=== PATIENT | female | born 1960 | race Caucasian/White ===

== ENCOUNTER 2019-11-09 12:59 | Outpatient (CLI) | payer MEDICARE, MEDICAID, SELFPAY ==
--- NOTE | ~2019-11-09 | XR_ITS ---
XR foot RT min 3V DATE: 11/09/2019 13:29 INDICATION: Fifth metatarsal pain following fall TECHNIQUE: 4 views COMPARISON: None FINDINGS: There is a fracture of the junction of the distal shaft and neck of the third metatarsal lane ne, with mild dorsal displacement and apex posterolateral angulation. There is osteoarthritic change at the first metatarsophalangeal joint. There is cerclage wire at the proximal phalanx of the first digit. IMPRESSION: Third metatarsal distal shaft/neck fracture Reviewed, dictated and finalized at location A.
== END 2019-11-09 13:00 | disposition home or self-care (01) ==
LOC: ANHIMG 13:05
PROVIDERS: PCP Internal Medicine; Visit Provider Internal Medicine
DX: M79.671 Pain in right foot (principal); S92.331A Displaced fracture of third metatarsal bone, right foot, initial encounter for closed fracture
CPT/HCPCS: 73630

== ENCOUNTER 2019-12-04 08:56 | Outpatient (CLI) | payer MEDICARE, MEDICAID, SELFPAY ==
--- NOTE | 2019-12-04 11:00 | NEURO_ITS ---
Patient Number: [id number] Impression: # Complains of right lateral foot numbness. # Normal nerve conduction study. # Normal needle/EMG exam. # Clinical correlation recommended; symptoms could be related to small branch involvement. Nerve Conduction Studies Anti Sensory Summary Table Stim Site NR Peak (ms) P-T Amp (?V) Site1 Site2 Delta-P (ms) Dist (cm) Fazal (m/s) Right Sup Fibular Anti Sensory (Ant Lat Mall) 14 cm 3.4 19.4 14 cm Ant Lat Mall 3.4 16.0 47 Right Sural Anti Sensory (Lat Mall) Calf 3.1 6.5 Calf Lat Mall 3.1 16.0 52 Motor Summary Table Stim Site NR Onset (ms) O-P Amp (mV) Site1 Site2 Delta-0 (ms) Dist (cm) Fazal (m/s) Right Peroneal Motor (Vastus Med) Ankle 3.1 1.7 Popit Ankle 6.7 34.0 51 Popit 9.8 1.5 Right Tibial Motor (Abd Polo Brev) Ankle 3.8 5.8 Knee Ankle 7.7 37.0 48 Knee 11.5 5.0 F Wave Studies NR F-Lat (ms) L-R F-Lat (ms) Right Peroneal (Mrkrs) (EDB) 43.98 Right Tibial (Mrkrs) (Abd Hallucis) 44.50 EMG Side Muscle Nerve Root Ins Act Fibs Amp Dur Recrt Comment Right AntTibialis Dp Br Fibular L4-5 Nml Nml Nml Nml Nml Right Gastroc Tibial S1-2 Nml Nml Nml Nml Nml Right Fibularis Long Sup Br Fibular L5-S1 Nml Nml Nml Nml Nml Right Flex Dig Long Tibial L5-S2 Nml Nml Nml Nml Nml Right Ext Dig Brev Dp Br Fibular L5, S1 Nml Nml Nml Nml Nml MTDD
== END 2019-12-04 08:57 | disposition home or self-care (01) ==
LOC: ANHNEURO 08:58
PROVIDERS: PCP Internal Medicine; Visit Provider Internal Medicine
DX: R20.2 Paresthesia of skin (principal)
CPT/HCPCS: 95886; 95908

== ENCOUNTER 2020-03-25 12:08 | Outpatient (CLI) | payer MEDICARE, MEDICAID, SELFPAY ==
[2020-03-25 12:53] LABS: Alanine Aminotransferase 29 U/L (4-35); Albumin Level 4.2 g/dL (3.5-5.1); Alkaline Phosphatase 115 U/L (38-126); Aspartate Amino Transferase 31 U/L (14-36); Bilirubin,Total 0.4 mg/dL (0.2-1.3); Cholesterol 243 mg/dL (0-200); HDL Direct 45 mg/dL; Triglycerides 159 mg/dL (<150)
[2020-03-25 13:05] LABS: LDL Cholesterol Direct 141 mg/dL
== END 2020-03-25 12:09 | disposition home or self-care (01) ==
PROVIDERS: PCP Internal Medicine; Visit Provider Internal Medicine
DX: E55.9 Vitamin D deficiency, unspecified (principal); E78.5 Hyperlipidemia, unspecified; Z79.899 Other long term (current) drug therapy
CPT/HCPCS: 36415; 80061; 80076; 82306

== ENCOUNTER 2020-09-18 11:05 | Outpatient (CLI) | payer MEDICARE, MEDICAID, SELFPAY ==
[2020-09-18 12:10] LABS: Alanine Aminotransferase 42 U/L (4-35); Albumin Level 4.1 g/dL (3.5-5.1); Alkaline Phosphatase 115 U/L (38-126); Anion Gap 6 mmol/L (8-16); Aspartate Amino Transferase 44 U/L (14-36); Bilirubin,Total 0.4 mg/dL (0.2-1.3); Blood Urea Nitrogen 10 mg/dL (7-17); Carbon Dioxide 26 mmol/L (22-30); Chloride 105 mmol/L (98-107); Cholesterol 269 mg/dL (0-200); Estimated Glomerular Filt Rate > 60; Glucose 93 mg/dL (65-105); HDL Direct 47 mg/dL; Potassium 4.3 mmol/L (3.4-5.0); Sodium 137 mmol/L (137-145); Triglycerides 137 mg/dL (<150)
[2020-09-18 12:20] LABS: LDL Cholesterol Direct 161 mg/dL
== END 2020-09-18 11:06 | disposition home or self-care (01) ==
PROVIDERS: PCP Internal Medicine; Visit Provider Nurse Practitioner
DX: E78.5 Hyperlipidemia, unspecified (principal); E55.9 Vitamin D deficiency, unspecified
CPT/HCPCS: 36415; 80053; 80061; 82306

== ENCOUNTER 2021-05-14 11:03 | Outpatient (CLI) | payer MEDICARE, MEDICAID, SELFPAY ==
[2021-05-14 12:09] LABS: LDL Cholesterol Direct 163 mg/dL
[2021-05-14 12:22] LABS: Alanine Aminotransferase 15 U/L (4-35); Albumin Level 4.5 g/dL (3.5-5.1); Alkaline Phosphatase 84 U/L (38-126); Anion Gap 8 mmol/L (8-16); Aspartate Amino Transferase 26 U/L (14-36); Bilirubin,Total 0.5 mg/dL (0.2-1.3); Blood Urea Nitrogen 10 mg/dL (7-17); Calcium 9.6 mg/dL (8.4-10.2); Carbon Dioxide 22 mmol/L (22-30); Chloride 104 mmol/L (98-107); Cholesterol 256 mg/dL (0-200); Estimated Glomerular Filt Rate > 60; Glucose 99 mg/dL (65-110); HDL Direct 54 mg/dL; Potassium 4.4 mmol/L (3.4-5.0); Sodium 134 mmol/L (137-145); Triglycerides 97 mg/dL (<150)
[2021-05-14 12:53] LABS: Vitamin D 25 Hydroxy 30.2 ng/mL
== END 2021-05-14 11:04 | disposition home or self-care (01) ==
LOC: ANHLAB 11:07
PROVIDERS: PCP Internal Medicine; Visit Provider Internal Medicine
DX: E55.9 Vitamin D deficiency, unspecified (principal); E78.5 Hyperlipidemia, unspecified; Z79.899 Other long term (current) drug therapy
CPT/HCPCS: 36415; 80053; 80061; 82306

== ENCOUNTER → 2021-08-29 00:02 | Outpatient (CLI) | payer MEDICARE, MEDICAID, SELFPAY ==
[2021-08-29 16:47] LABS: SARS-CoV-2 RNA PCR Negative
== END ==
PROVIDERS: PCP Internal Medicine; Visit Provider Internal Medicine Gastroenterology
DX: Z01.812 Encounter for preprocedural laboratory examination (principal); Z20.822 Contact with and (suspected) exposure to COVID-19
CPT/HCPCS: C9803; U0003; U0005

== ENCOUNTER 2021-09-25 13:10 | Outpatient (CLI) | payer MEDICARE, MEDICAID, SELFPAY ==
--- NOTE | ~2021-09-25 | DEXA_ITS ---
Bone Density Report Name: TRANG NICKERSON Age: 61 Sex: Female Ethnicity: White Date of : 1960 Indication: postmenopausal osteoporosis; monitoring treatment; prior fracture; Referring Provider: Aspen Sheffield Study: Bone densitometry was performed. Exam Date: September 25, 2021 Accession number: [id number] Bone Density: Region BMD T-score Z-score Classification AP Spine (L1-L4) 0.623 -3.9 -2.2 Osteoporosis Femoral Neck (Left) 0.459 -3.5 -2.1 Osteoporosis Total Hip (Left) 0.564 -3.1 -2.0 Osteoporosis Total Hip Bilateral Avg 0.600 -2.8 -1.7 Osteoporosis Femoral Neck (Right) 0.527 -2.9 -1.5 Osteoporosis Total Hip (Right) 0.635 -2.5 -1.4 Osteoporosis World Health Organization criteria for BMD impression classify patients as: Normal (T-score at or above -1.0), Osteopenia (T-score between -1.0 and -2.5), or Osteoporosis (T-score at or below -2.5). 10-year Fracture Risk: FRAX not reported because: Some T-score for Spine Total or Hip Total or Femoral Neck at or below -2.5 Treated for osteoporosis Previous Exams: Region Exam Age BMD T-score BMD Change BMD Change Date g/cm2 vs Baseline vs Previous AP Spine(L1-L4) 09/25/2021 61 0.623 -3.9 0.028(4.7%)* -0.005(-0.7%) 01/28/2017 56 0.627 -3.8 0.032(5.5%)* 0.032(5.5%)* 08/21/2014 53 0.595 -4.1 Total Hip(Left) 09/25/2021 61 0.564 -3.1 -0.026(-4.4%) -0.045(-7.4%)* 01/28/2017 56 0.609 -2.7 0.019(3.2%) 0.019(3.2%) 08/21/2014 53 0.590 -2.9 Total Hip(Right) 09/25/2021 61 0.635 -2.5 -0.039(-5.8%)* -0.078(-10.9%) 01/28/2017 56 0.712 -1.9 0.039(5.7%)* 0.039(5.7%)* 08/21/2014 53 0.674 -2.2 *Denotes significance at 95% confidence level, LSC for AP Spine = 0.022 g/cm2, LSC for Total Hip = 0.027 g/cm2 Clinical Information Provided by Patient: Has had a low trauma fracture Smokes Is being treated for osteoporosis Has used the following medications: Fosamax (i.e. alendronate), Vitamin D, Calcium Patient maximum height was 61 Menopause Age: 43 No regular weight bearing exercise Drinks caffeinated beverages Onset of menses at age 14 Number of children 2 Impression: The patient has established osteoporosis, based on the Total Spine T-score and the existence of a prior fracture. The patient has risk factors, including: smoking, previous fracture. The BMD for the Total Hip(Left) decreased, changing by -7.4% since the last DXA exam. The BMD for the Total Hip(Right
--- NOTE | ~2021-09-25 | MM_ITS ---
EXAMINATION: MM screening [facility] BI w aretha HISTORY: Screening mammogram TECHNIQUE: Craniocaudal and mediolateral oblique 3-D tomosynthesis images were obtained and synthetic 2-D images were generated. CAD analysis was submitted and interpreted. COMPARISON: 03/15/2017, 01/28/2017, 08/21/2014 BREAST PARENCHYMAL COMPOSITION: The breasts are heterogeneously dense, which may obscure small masses . FINDINGS: There is benign calcification in the right breast. There is no suspicious mass, calcificati on, or architectural distortion to suggest malignancy in either breast. There has been no suspicious interval change. IMPRESSION: 1. No mammographic evidence of malignancy. 2. Recommend routine screening mammography in one year. BI-RADS Category 2: Benign finding(s). Reviewed, dictated and finalized at location A.
== END 2021-09-25 13:11 | disposition home or self-care (01) ==
LOC: ANHIMG 13:12
PROVIDERS: PCP Internal Medicine; Visit Provider Nurse Practitioner
DX: Z12.31 Encounter for screening mammogram for malignant neoplasm of breast (principal); Z78.0 Asymptomatic menopausal state; M81.0 Age-related osteoporosis without current pathological fracture
CPT/HCPCS: 77063; 77067; 77080

== ENCOUNTER → 2021-10-10 00:37 | Outpatient (CLI) | payer MEDICARE, MEDICAID, SELFPAY ==
[2021-10-10 13:00] LABS: SARS-CoV-2 RNA PCR Negative
== END ==
PROVIDERS: PCP Internal Medicine; Visit Provider Internal Medicine Gastroenterology
DX: Z01.812 Encounter for preprocedural laboratory examination (principal); Z20.822 Contact with and (suspected) exposure to COVID-19
CPT/HCPCS: C9803; U0003; U0005

== ENCOUNTER 2021-10-13 00:01 | Day surgery (SDC) | payer MEDICARE, MEDICAID, SELFPAY ==
[2021-08-17 15:56] VITALS: BMI 22.4
[2021-10-06 09:34] VITALS: BMI 22.4
[2021-10-13 09:06] VITALS: BP 113/56; PULSE 83; RESP 15; O2SAT 100
[2021-10-13] MEDS: LACTATED RINGERS 1,000 ML 150 ML IV CONT (09:14)
--- NOTE | 2021-10-13 09:30 | WPDANESEPPF ---
Anes - Initial Pre Proc Eval Procedure: Operation Date: 10/13/21 10:30 Proposed Procedures p Screening Colonoscopy - Jung Metcalf MD Date/Time: 10/13/21 09:30 Surgeon: Jung Metcalf MD Pre Op Diagnosis: hx of colon polyps, neoplasm screening Patient Data Age: 61 Gender: F Height: 1.55 m Weight: 53 kg Last Vital Signs Pulse 83 10/13/21 09:06 Resp 15 10/13/21 09:06 BP 113/56 L 10/13/21 09:06 Pulse Ox 100 10/13/21 09:06 Allergies Allergy/AdvReac Type Severity Reaction Status Date / Time No Known Allergies Allergy Unknown Verified 10/13/21 09:04 Home Medications Medication Instructions Recorded Confirmed Type atorvastatin 40 mg tablet 40 mg PO DAILY #90 tablet 11/05/20 10/13/21 Rx lamotrigine 100 mg tablet 100 mg PO DAILY #90 tablet 06/11/21 10/13/21 Rx paroxetine HCl 20 mg tablet 20 mg PO DAILY #30 tablet 06/11/21 10/13/21 Rx omeprazole 40 mg capsule,delayed 40 mg PO DAILY #90 cap 07/09/21 10/13/21 Rx release risedronate 35 mg tablet 35 mg PO WEEKLY #4 tablet 09/25/21 10/13/21 Rx Patient hx anesthesia problems: none Family hx anesthesia problems: none Results Review: All pre-operative results and documents have been reviewed as part of the pre-operative evaluation. [facility] Past Medical History Medical History Anxiety Autoimmune hepatitis Bipolar II disorder Chronic low back pain Complete rotator cuff tear or rupture of right shoulder, not specified as traumatic Degenerative joint disease of knee Depression Effusion, left knee Enchondroma Follow-up fracture care for healing fracture Gastro-esophageal reflux disease with esophagitis Hearing loss History of colon polyps History of tobacco use Hyperlipidemia, unspecified Knee effusion, right Metatarsal bone fracture On [facility] drug therapy Osteoporosis Personal history of peptic ulcer disease Post menopausal problems Right knee pain Screening mammogram, encounter for Smoking Vitamin D deficiency Wears glasses Surgical History Surgical History History of ankle surgery History of carpal tunnel surgery of left wrist History of rotator cuff surgery S/P right knee arthroscopy Family History Family History Mother Patient's mother is Father Patient's father is Social History Social History Smoking packs per day: 2 Smoking cigarettes per day: 40.0 Years smoked: 42 Smoking pack-years: 84.00 Smoking status: Current every day smoker Tobacco type: cigarettes Second hand tobacco smoke exposure: Yes Alcohol intake: never Substance use: never Substance use type: does not use Living arrangements: alone Additional occupation/education comments: disability Gender identity (if verbalized by the patient): Female Spiritual care concerns: No Agree to blood products: Yes Anes - Eval Final PreProcedure Day of Procedure 10/13/21 09:30 Patient weight: normal Heart: regular rate and rhythm Lungs: clear to auscultation Airway: Mallampati scale class II Neurological: alert and oriented Last oral intake: >/= 8 hours ASA classification: III Emergent: no Anesthetic plan: proceed Anesthesia type and monitoring: general GIVS and standard monitoring Results Review: All pre-operative results and documents have been reviewed as part of the pre-operative evaluation. Informed Consent: The patient's anesthetic plan and its attendant risks and benefits were discussed with the patient/family/POA. Questions were solicited and answers provided to the satisfaction of the patient/family/POA.
--- NOTE | 2021-10-13 09:46 | PM.HPGS ---
History of Present Illness History of Present Illness Consent: Risks, benefits, and alternatives have been discussed and questions answered. Patient agrees to proceed with procedure. Chief complaint: hx of colon polyps, neoplasm screening Narrative: Janeen Ferro is a 61 year old female with colon polyp in 2017 Review of Systems Constitutional: Constitutional: Denies headache(s) and Denies weakness Eyes: Eyes: Denies blurry vision ENT: Reports Normal hearing present, Denies headache(s) and Denies neck pain Cardiovascular: Cardiovascular: Denies chest pain and Denies dyspnea Respiratory: Respiratory: Denies dyspnea Gastrointestinal: Gastrointestinal: Reports no additional gastrointestinal complaints Genitourinary: Genitourinary: Denies dysuria Musculoskeletal: Musculoskeletal: Denies neck pain Integumentary/Breasts: Skin/Breast: Denies dry skin Neurologic: Reports Normal hearing present, Denies headache(s) and Denies weakness Psychiatric: Psychiatric: Denies anxiety Endocrine: Endocrine: Denies change in body appearance Hematologic/Lymphatic: Hematologic/Lymphatic: Denies easy bleeding Allergic/Immunologic: Allergic/Immunologic: Denies urticaria PMFSH Past Medical History Medical History Anxiety Autoimmune hepatitis Bipolar II disorder Chronic low back pain Complete rotator cuff tear or rupture of right shoulder, not specified as traumatic Degenerative joint disease of knee Depression Effusion, left knee Enchondroma Follow-up fracture care for healing fracture Gastro-esophageal reflux disease with esophagitis Hearing loss History of colon polyps History of tobacco use Hyperlipidemia, unspecified Knee effusion, right Metatarsal bone fracture 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 Osteoporosis Personal history of peptic ulcer disease Post menopausal problems Right knee pain Screening mammogram, encounter for Smoking Vitamin D deficiency Wears glasses Surgical History Surgical History History of ankle surgery History of carpal tunnel surgery of left wrist History of rotator cuff surgery S/P right knee arthroscopy Family History Family History Mother Patient's mother is Father Patient's father is Social History Social History Smoking packs per day: 2 Smoking cigarettes per day: 40.0 Years smoked: 42 Smoking pack-years: 84.00 Smoking status: Current every day smoker Tobacco type: cigarettes Second hand tobacco smoke exposure: Yes Alcohol intake: never Substance use: never Substance use type: does not use Living arrangements: alone Additional occupation/education comments: disability Gender identity (if verbalized by the patient): Female Spiritual care concerns: No Agree to blood products: Yes Meds Home Medications and Allergies Home Medications Medication Instructions Recorded Confirmed Type atorvastatin 40 mg tablet 40 mg PO DAILY #90 tablet 11/05/20 10/13/21 Rx lamotrigine 100 mg tablet 100 mg PO DAILY #90 tablet 06/11/21 10/13/21 Rx paroxetine HCl 20 mg tablet 20 mg PO DAILY #30 tablet 06/11/21 10/13/21 Rx omeprazole 40 mg capsule,delayed 40 mg PO DAILY #90 cap 07/09/21 10/13/21 Rx release risedronate 35 mg tablet 35 mg PO WEEKLY #4 tablet 09/25/21 10/13/21 Rx Allergies Allergy/AdvReac Type Severity Reaction Status Date / Time No Known Allergies Allergy Unknown Verified 10/13/21 09:04 Vital Signs Vital Signs - 24 hr 10/13/21 09:06 Pulse Rate 83 Respiratory Rate 15 Blood Pressure 113/56 L Pulse Oximetry 100 Exam Const: General: comfortable and no acute distress HENMT: General nose exam: Normal nares present Eyes: General: appearance normal, both eyes and all re
[2021-10-13 10:09] VITALS: BP 92/57; PULSE 70; RESP 19; O2SAT 97
[2021-10-13 10:19] VITALS: BP 92/57; PULSE 67; RESP 23; O2SAT 99
[2021-10-13 10:29] VITALS: BP 96/58; PULSE 70; RESP 18; O2SAT 99
== END 2021-10-13 10:40 | disposition home or self-care (01) ==
PROVIDERS: PCP Internal Medicine; Visit Provider Internal Medicine Gastroenterology
PROC: 0DJD8ZZ Inspection of Lower Intestinal Tract, Via Natural or Artificial Opening Endoscopic (ICD-10-PCS; CPT 45378; principal; 2021-10-13 10:30)
DX: Z12.11 Encounter for screening for malignant neoplasm of colon (principal); D12.2 Benign neoplasm of ascending colon; F41.8 Other specified anxiety disorders; F31.81 Bipolar II disorder; K21.9 Gastro-esophageal reflux disease without esophagitis; E78.5 Hyperlipidemia, unspecified; M81.0 Age-related osteoporosis without current pathological fracture; Z87.11 Personal history of peptic ulcer disease; Z87.898 Personal history of other specified conditions; E55.9 Vitamin D deficiency, unspecified; M19.90 Unspecified osteoarthritis, unspecified site; F17.210 Nicotine dependence, cigarettes, uncomplicated
CPT/HCPCS: 45380; 45385; 88305; C9803; J2704; J7120; U0003; U0005

== ENCOUNTER 2021-11-17 09:33 | Outpatient (CLI) | payer MEDICARE, MEDICAID, SELFPAY ==
[2021-11-17 10:08] LABS: Alanine Aminotransferase 15 U/L (6-35); Albumin Level 4.2 g/dL (3.5-5.1); Alkaline Phosphatase 113 U/L (38-126); Anion Gap 7 mmol/L (8-16); Aspartate Amino Transferase 26 U/L (14-36); Bilirubin,Total 0.6 mg/dL (0.2-1.3); Blood Urea Nitrogen 10 mg/dL (7-17); Calcium 8.9 mg/dL (8.4-10.2); Carbon Dioxide 24 mmol/L (22-30); Chloride 102 mmol/L (98-107); Cholesterol 312 mg/dL (0-200); Estimated Glomerular Filt Rate > 60; Glucose 95 mg/dL (65-110); HDL Direct 41 mg/dL; Potassium 4.1 mmol/L (3.4-5.0); Sodium 133 mmol/L (137-145); Triglycerides 145 mg/dL (<150)
[2021-11-17 10:14] LABS: Alanine Aminotransferase 15 U/L (6-35); Albumin Level 4.2 g/dL (3.5-5.1); Alkaline Phosphatase 116 U/L (38-126); Aspartate Amino Transferase 28 U/L (14-36); Bilirubin,Total 0.5 mg/dL (0.2-1.3)
[2021-11-17 10:18] LABS: LDL Cholesterol Direct 187 mg/dL
[2021-11-17 11:02] LABS: Vitamin D 25 Hydroxy 36.2 ng/mL
== END 2021-11-17 09:34 | disposition home or self-care (01) ==
LOC: ANHLAB 09:41
PROVIDERS: Nurse Practitioner; PCP Internal Medicine; Visit Provider Internal Medicine
DX: E55.9 Vitamin D deficiency, unspecified (principal); E78.5 Hyperlipidemia, unspecified; Z51.81 Encounter for therapeutic drug level monitoring; Z79.899 Other long term (current) drug therapy
CPT/HCPCS: 36415; 80053; 80061; 80076; 82306

== ENCOUNTER 2021-11-26 09:56 | Outpatient (CLI) | payer MEDICARE, MEDICAID, SELFPAY ==
--- NOTE | ~2021-11-26 | CT_ITS ---
EXAMINATION: CT lung screening DATE: 11/26/2021 10:18 INDICATION: Tobacco use. Personal history of nicotine dependence. TECHNIQUE: Computed tomography (CT) of the chest was performed without intravenous contrast. The dose -length product was 54.17 mGy-cm. Automated exposure control and iterative reconstruction technique w ere employed. COMPARISON: CT dated 05/23/2019 FINDINGS: There is emphysema. No thoracic lymphadenopathy. Heart size normal. No significant pleural or pericardial effusion. There is pancreatic calcification suggesting chronic pancreatitis. No pneumo thorax. There is a 2-3 mm left lower lobe nodule. There are small 1-3 mm upper lobe pulmonary nodules . There is apical pleural thickening/scarring. No endobronchial lesions. Mild thoracic spondylosis wi th accentuated kyphosis. IMPRESSION: 1. Lung-RADS category 2: Benign appearance or behavior. Continue annual screening with noncontrast lo w-dose chest CT in 12 months. Reviewed, dictated and finalized at location B. IMPRESSION: 1. Lung-RADS category 2: Benign appearance or behavior. Continue annual screeni ng with noncontrast low-dose chest CT in 12 months.
== END 2021-11-26 09:57 | disposition home or self-care (01) ==
PROVIDERS: PCP Internal Medicine; Visit Provider Internal Medicine
DX: Z12.2 Encounter for screening for malignant neoplasm of respiratory organs (principal); Z87.891 Personal history of nicotine dependence
CPT/HCPCS: 71271

== ENCOUNTER 2022-05-25 10:29 | Outpatient (CLI) | payer MEDICARE, MEDICAID, SELFPAY ==
[2022-05-25 10:58] LABS: Alanine Aminotransferase 18 U/L (6-35); Albumin Level 4.4 g/dL (3.5-5.1); Alkaline Phosphatase 110 U/L (38-126); Anion Gap 8 mmol/L (8-16); Aspartate Amino Transferase 28 U/L (14-36); Bilirubin,Total 0.6 mg/dL (0.2-1.3); Blood Urea Nitrogen 8 mg/dL (7-17); Calcium 8.9 mg/dL (8.4-10.2); Carbon Dioxide 24 mmol/L (22-30); Chloride 101 mmol/L (98-107); Estimated Glomerular Filt Rate > 60; Glucose 97 mg/dL (65-110); Potassium 4.2 mmol/L (3.4-5.0); Sodium 133 mmol/L (137-145)
[2022-05-25 11:25] LABS: Vitamin D 25 Hydroxy 31.9 ng/mL
== END 2022-05-25 10:30 | disposition home or self-care (01) ==
PROVIDERS: PCP Internal Medicine; Visit Provider Internal Medicine
DX: E55.9 Vitamin D deficiency, unspecified (principal); E78.5 Hyperlipidemia, unspecified; Z79.899 Other long term (current) drug therapy
CPT/HCPCS: 36415; 80053; 82306

== ENCOUNTER 2022-06-08 08:43 | Outpatient (CLI) | payer MEDICARE, MEDICAID, SELFPAY ==
[2022-06-08 09:23] LABS: Cholesterol 221 mg/dL (0-200); HDL Direct 31 mg/dL; Triglycerides 167 mg/dL (<150)
[2022-06-08 09:36] LABS: LDL Cholesterol Direct 106 mg/dL
== END 2022-06-08 08:44 | disposition home or self-care (01) ==
PROVIDERS: PCP Internal Medicine; Visit Provider Nurse Practitioner
DX: E78.5 Hyperlipidemia, unspecified (principal)
CPT/HCPCS: 36415; 80061

== ENCOUNTER 2022-11-25 09:54 | Outpatient (CLI) | payer MEDICARE, MEDICAID, SELFPAY ==
--- NOTE | ~2022-11-25 | MM_ITS ---
EXAMINATION: MM screening [facility] BI w aretha HISTORY: Screening mammogram TECHNIQUE: Craniocaudal and mediolateral oblique 3-D tomosynthesis images were obtained and synthetic 2-D images were generated. CAD analysis was submitted and interpreted. COMPARISON: 09/25/2021, 03/15/2017, 01/28/2017 BREAST PARENCHYMAL COMPOSITION: The breasts are heterogeneously dense, which may obscure small masses . FINDINGS: Benign right breast calcification is again noted. No suspicious mass, calcification, or arc hitectural distortion are identified in either breast to suggest malignancy. There has been no suspic ious interval change. IMPRESSION: 1. No mammographic evidence of malignancy. 2. Recommend routine screening mammography in one year. BI-RADS Category 2: Benign finding(s). Reviewed, dictated and finalized at location A.
== END 2022-11-25 09:55 | disposition home or self-care (01) ==
PROVIDERS: PCP Internal Medicine; Visit Provider Internal Medicine
DX: Z12.31 Encounter for screening mammogram for malignant neoplasm of breast (principal)
CPT/HCPCS: 77063; 77067

== ENCOUNTER 2022-11-30 08:49 | Outpatient (CLI) | payer MEDICARE, MEDICAID, SELFPAY ==
[2022-11-30 09:25] LABS: Alanine Aminotransferase 22 U/L (6-35); Albumin Level 4.2 g/dL (3.5-5.1); Alkaline Phosphatase 112 U/L (38-126); Anion Gap 7 mmol/L (8-16); Aspartate Amino Transferase 27 U/L (14-36); Bilirubin,Total 0.4 mg/dL (0.2-1.3); Blood Urea Nitrogen 11 mg/dL (7-17); Calcium 8.8 mg/dL (8.4-10.2); Carbon Dioxide 25 mmol/L (22-30); Chloride 104 mmol/L (98-107); Cholesterol 289 mg/dL (0-200); Estimated Glomerular Filt Rate > 60; Glucose 96 mg/dL (65-110); HDL Direct 51 mg/dL; Potassium 4.4 mmol/L (3.4-5.0); Sodium 136 mmol/L (137-145); Triglycerides 115 mg/dL (<150)
[2022-11-30 09:36] LABS: LDL Cholesterol Direct 176 mg/dL
[2022-11-30 09:53] LABS: Vitamin D 25 Hydroxy 30.6 ng/mL
== END 2022-11-30 08:50 | disposition home or self-care (01) ==
PROVIDERS: Nurse Practitioner; PCP Family Medicine; Visit Provider Family Medicine
DX: E78.5 Hyperlipidemia, unspecified (principal); E55.9 Vitamin D deficiency, unspecified
CPT/HCPCS: 36415; 80053; 80061; 82306

== ENCOUNTER 2023-06-15 09:25 | Outpatient (CLI) | payer MEDICARE, MEDICAID, SELFPAY ==
[2023-06-15 10:09] LABS: Basophils Absolute Auto 0.1 K/mm3 (0.0-0.1); Basophils Percent Auto 0.7 % (0.2-1.2); Eosinophils Absolute Auto 0.2 K/mm3 (0-0.3); Hemoglobin 13.1 g/dL (12.0-15.0); Immature Granulocyte Absolute 0.03 K/mm3 (0.00-0.031); Immature Granulocyte Percent A 0.2 % (0-0.5); Lymphocytes Absolute Auto 3.11 K/mm3 (0.9-3.2); Lymphocytes Percent Auto 25.6 % (18.3-44.2); Mean Corpuscular HGB Conc 32.8 g/dl (32-36); Mean Corpuscular Hemoglobin 30.8 pg (26-34); Mean Corpuscular Volume 93.9 fl (80-100); Mean Platelet Volume 9.6 fl (7.4-10.4); Monocytes Absolute Auto 2.1 K/mm3 (0.1-0.6); Monocytes Percent Auto 16.9 % (2.6-8.5); Neutrophils Absolute Auto 6.6 K/mm3 (1.3-6.7); Neutrophils Percent Auto 54.6 % (45.5-73.1); Platelet Count Result 317 k/mm3 (150-375); Red Blood Count 4.26 M/mm3 (4.2-5.4); White Blood Count 12.2 K/mm3 (4.5-10.0)
[2023-06-15 10:25] LABS: Alanine Aminotransferase 12 U/L (6-35); Albumin Level 4.1 g/dL (3.5-5.1); Alkaline Phosphatase 107 U/L (38-126); Anion Gap 9 mmol/L (8-16); Aspartate Amino Transferase 23 U/L (14-36); Bilirubin,Total 0.5 mg/dL (0.2-1.3); Blood Urea Nitrogen 10 mg/dL (7-17); Calcium 9.5 mg/dL (8.4-10.2); Carbon Dioxide 24 mmol/L (22-30); Chloride 103 mmol/L (98-107); Cholesterol 293 mg/dL (0-200); Estimated Glomerular Filt Rate > 60; Glucose 98 mg/dL (65-110); HDL Direct 45 mg/dL; Potassium 4.4 mmol/L (3.4-5.0); Sodium 136 mmol/L (137-145); Triglycerides 146 mg/dL (<150)
[2023-06-15 10:36] LABS: LDL Cholesterol Direct 167 mg/dL
[2023-06-15 10:44] LABS: Creatinine Urine 17.6 mg/dL
[2023-06-15 10:50] LABS: Microalbumin Urine Random < 6.0 mg/L (0-16.7)
== END 2023-06-15 09:26 | disposition home or self-care (01) ==
PROVIDERS: PCP Family Medicine; Visit Provider Nurse Practitioner Family
DX: E78.5 Hyperlipidemia, unspecified (principal)
CPT/HCPCS: 36415; 80053; 80061; 82043; 85025

== ENCOUNTER 2024-01-02 09:03 | Outpatient (CLI) | payer MEDICARE, MEDICAID, SELFPAY ==
[2024-01-02 10:38] LABS: Basophils Absolute Auto 0.1 K/mm3 (0.0-0.1); Basophils Percent Auto 0.6 % (0.2-1.2); Eosinophils Absolute Auto 0.3 K/mm3 (0-0.3); Eosinophils Percent Auto 2.3 % (0-4.4); Hematocrit 40.1 % (37.0-47.0); Hemoglobin 13.3 g/dL (12.0-15.0); Immature Granulocyte Absolute 0.03 K/mm3 (0.00-0.031); Immature Granulocyte Percent A 0.3 % (0-0.5); Lymphocytes Absolute Auto 3.34 K/mm3 (0.9-3.2); Lymphocytes Percent Auto 30.1 % (18.3-44.2); Mean Corpuscular HGB Conc 33.2 g/dl (32-36); Mean Corpuscular Hemoglobin 31.3 pg (26-34); Mean Corpuscular Volume 94.4 fl (80-100); Mean Platelet Volume 10.2 fl (7.4-10.4); Monocytes Absolute Auto 1.9 K/mm3 (0.1-0.6); Monocytes Percent Auto 16.9 % (2.6-8.5); Neutrophils Absolute Auto 5.5 K/mm3 (1.3-6.7); Neutrophils Percent Auto 49.8 % (45.5-73.1); Platelet Count Result 319 k/mm3 (150-375); Red Blood Count 4.25 M/mm3 (4.2-5.4); Red Cell Distribution Width 13.1 % (11.5-14.5); White Blood Count 11.1 K/mm3 (4.5-10.0)
[2024-01-02 10:46] LABS: Alanine Aminotransferase 15 U/L (6-35); Albumin Level 4.3 g/dL (3.5-5.1); Alkaline Phosphatase 94 U/L (38-126); Anion Gap 8 mmol/L (4-12); Aspartate Amino Transferase 23 U/L (14-36); Bilirubin,Total 0.5 mg/dL (0.2-1.3); Blood Urea Nitrogen 10 mg/dL (7-17); Calcium 9.1 mg/dL (8.4-10.2); Carbon Dioxide 23 mmol/L (22-30); Chloride 105 mmol/L (98-107); Cholesterol 242 mg/dL (0-200); Estimated Glomerular Filt Rate > 60; Glucose 90 mg/dL (65-110); HDL Direct 49 mg/dL; Potassium 4.1 mmol/L (3.4-5.0); Sodium 136 mmol/L (137-145); Triglycerides 154 mg/dL (<150)
[2024-01-02 10:57] LABS: LDL Cholesterol Direct 142 mg/dL
== END 2024-01-02 09:04 | disposition home or self-care (01) ==
LOC: ANHLAB 09:07
PROVIDERS: PCP Nurse Practitioner Family; Visit Provider Nurse Practitioner Family
DX: E78.5 Hyperlipidemia, unspecified (principal); E55.9 Vitamin D deficiency, unspecified; F17.200 Nicotine dependence, unspecified, uncomplicated; J43.9 Emphysema, unspecified; Z79.899 Other long term (current) drug therapy; Z13.820 Encounter for screening for osteoporosis; Z12.31 Encounter for screening mammogram for malignant neoplasm of breast
CPT/HCPCS: 36415; 80053; 80061; 85025

== ENCOUNTER 2024-01-17 07:16 | Outpatient (CLI) | payer MEDICARE, MEDICAID, SELFPAY ==
--- NOTE | ~2024-01-17 | DEXA_ITS ---
Bone Density Report Name: TRANG NICKERSON Age: 63 Sex: Female Ethnicity: White Date of : 1960 Indication: postmenopausal osteoporosis; monitoring treatment; Referring Provider: ELDER BARNARD Study: Bone densitometry was performed. Exam Date: January 17, 2024 Accession number: [id number] Bone Density: Region BMD T-score Z-score Classification AP Spine(L1-L4) 0.571 -4.3 -2.5 Osteoporosis Femoral Neck (Left) 0.482 -3.3 -1.8 Osteoporosis Total Hip (Left) 0.604 -2.8 -1.5 Osteoporosis Femoral Neck (Right) 0.567 -2.5 -1.0 Osteoporosis Total Hip (Right) 0.669 -2.2 -1.0 Osteopenia Total Hip Mean 0.636 -2.5 -1.3 Osteoporosis World Health Organization criteria for BMD impression classify patients as: Normal (T-score at or above -1.0), Osteopenia (T-score between -1.0 and -2.5), or Osteoporosis (T-score at or below -2.5). 10-year Fracture Risk: FRAX not reported because: Some T-score for Spine Total or Hip Total or Femoral Neck at or below -2.5 Treated for osteoporosis Previous Exams: Region Exam Age BMD T-score BMD Change BMD Change Date g/cm2 vs Baseline vs Previous AP Spine (L1-L4) 01/17/2024 63 0.571 -4.3 -0.024 (-4.0%) -0.052 (-8.3%) 09/25/2021 61 0.623 -3.9 0.028 (4.7%)* -0.005 (-0.7%) 01/28/2017 56 0.627 -3.8 0.032 (5.5%)* 0.032 (5.5%)* 08/21/2014 53 0.595 -4.1 Total Hip(Left) 01/17/2024 63 0.604 -2.8 0.014 (2.3%) 0.040 (7.0%)* 09/25/2021 61 0.564 -3.1 -0.026 (-4.4%) -0.045 (-7.4%) 01/28/2017 56 0.609 -2.7 0.019 (3.2%) 0.019 (3.2%) 08/21/2014 53 0.590 -2.9 Total Hip(Right) 01/17/2024 63 0.669 -2.2 -0.005 (-0.7%) 0.034 (5.4%)* 09/25/2021 61 0.635 -2.5 -0.039 (-5.8%) -0.078 (-10.9% 01/28/2017 56 0.712 -1.9 0.039 (5.7%)* 0.039 (5.7%)* 08/21/2014 53 0.674 -2.2 *Denotes significance at 95% confidence level, LSC for AP Spine = 0.022 g/cm2, LSC for Total Hip = 0.027 g/cm2 Clinical Information Provided by Patient: Is being treated for osteoporosis Has used the following medications: Vitamin D Patient maximum height was 61 Menopause Age: 43 No regular weight bearing exercise Drinks caffeinated beverages Onset of menses at age 11 Number of children 2 Impression: The patient has osteoporosis, based on the Total Spine T-score. The BMD for the AP Spine (L1-L4) decreased, changing by -8.3% since the last DXA exam. Discussion: SIGNIFICANT BONE LOSS OBSER
--- NOTE | ~2024-01-17 | MM_ITS ---
EXAMINATION: MM screening [facility] BI w aretha HISTORY: Screening TECHNIQUE: Craniocaudal and mediolateral oblique 3-D tomosynthesis images were obtained and synthetic 2-D images were generated. CAD analysis was submitted and interpreted. COMPARISON: Comparison to multiple prior studies sequentially, with oldest reviewed study dated 08/21. BREAST PARENCHYMAL COMPOSITION: Not dense: There are scattered areas of fibroglandular density. FINDINGS: There is no evidence of suspicious mass, calcification, or architectural distortion to sugg est malignancy in either breast. There has been no suspicious interval change. IMPRESSION: 1. No mammographic evidence of malignancy. 2. Recommend routine screening mammography in one year. BI-RADS Category 1: Negative Reviewed, dictated and finalized at location B.
== END 2024-01-17 07:17 | disposition home or self-care (01) ==
PROVIDERS: PCP Family Medicine; Visit Provider Nurse Practitioner Family
DX: Z12.31 Encounter for screening mammogram for malignant neoplasm of breast (principal); Z78.0 Asymptomatic menopausal state; M85.88 Other specified disorders of bone density and structure, other site; M81.0 Age-related osteoporosis without current pathological fracture
CPT/HCPCS: 77063; 77067; 77080

== ENCOUNTER 2024-02-09 08:50 | Outpatient (CLI) | payer MEDICARE, MEDICAID, SELFPAY ==
[2024-02-09 09:29] LABS: Basophils Absolute Auto 0.1 K/mm3 (0.0-0.1); Basophils Percent Auto 0.7 % (0.2-1.2); Eosinophils Absolute Auto 0.2 K/mm3 (0-0.3); Eosinophils Percent Auto 1.7 % (0-4.4); Hematocrit 39.5 % (37.0-47.0); Hemoglobin 13.2 g/dL (12.0-15.0); Immature Granulocyte Absolute 0.03 K/mm3 (0.00-0.031); Immature Granulocyte Percent A 0.2 % (0-0.5); Lymphocytes Absolute Auto 2.92 K/mm3 (0.9-3.2); Lymphocytes Percent Auto 24.1 % (18.3-44.2); Mean Corpuscular HGB Conc 33.4 g/dl (32-36); Mean Corpuscular Hemoglobin 31.7 pg (26-34); Mean Corpuscular Volume 94.7 fl (80-100); Mean Platelet Volume 9.9 fl (7.4-10.4); Monocytes Absolute Auto 2.4 K/mm3 (0.1-0.6); Monocytes Percent Auto 19.4 % (2.6-8.5); Neutrophils Absolute Auto 6.5 K/mm3 (1.3-6.7); Neutrophils Percent Auto 53.9 % (45.5-73.1); Platelet Count Result 302 k/mm3 (150-375); Red Blood Count 4.17 M/mm3 (4.2-5.4); Red Cell Distribution Width 12.6 % (11.5-14.5); White Blood Count 12.1 K/mm3 (4.5-10.0)
[2024-02-09 10:19] LABS: Free T4 Free Thyroxine 1.35 ng/mL (0.78-2.19); Platelet Estimate Adequate (Adequate); Schistocytes None Seen
== END 2024-02-09 08:51 | disposition home or self-care (01) ==
LOC: ANHLAB 08:56
PROVIDERS: PCP Family Medicine; Visit Provider Nurse Practitioner Family
DX: D72.829 Elevated white blood cell count, unspecified (principal); E55.9 Vitamin D deficiency, unspecified; L65.9 Nonscarring hair loss, unspecified; R53.83 Other fatigue; Z79.899 Other long term (current) drug therapy
CPT/HCPCS: 36415; 84439; 84443; 85025

== ENCOUNTER 2024-04-05 09:04 | Outpatient (CLI) | payer MEDICARE, MEDICAID, SELFPAY ==
[2024-04-05 09:47] LABS: Basophils Absolute Auto 0.1 K/mm3 (0.0-0.1); Basophils Percent Auto 0.8 % (0.2-1.2); Eosinophils Absolute Auto 0.3 K/mm3 (0-0.3); Eosinophils Percent Auto 2.3 % (0-4.4); Hematocrit 40.6 % (37.0-47.0); Hemoglobin 13.4 g/dL (12.0-15.0); Immature Granulocyte Absolute 0.02 K/mm3 (0.00-0.031); Immature Granulocyte Percent A 0.2 % (0-0.5); Lymphocytes Absolute Auto 3.17 K/mm3 (0.9-3.2); Lymphocytes Percent Auto 29.7 % (18.3-44.2); Mean Corpuscular Hemoglobin 31.2 pg (26-34); Mean Corpuscular Volume 94.6 fl (80-100); Mean Platelet Volume 9.1 fl (7.4-10.4); Neutrophils Absolute Auto 5.1 K/mm3 (1.3-6.7); Platelet Count Result 311 k/mm3 (150-375); Red Blood Count 4.29 M/mm3 (4.2-5.4); White Blood Count 10.7 K/mm3 (4.5-10.0)
[2024-04-05 11:05] LABS: Alanine Aminotransferase 25 U/L (6-35); Albumin Level 4.4 g/dL (3.5-5.1); Alkaline Phosphatase 92 U/L (38-126); Anion Gap 10 mmol/L (4-12); Aspartate Amino Transferase 32 U/L (14-36); Bilirubin,Total 0.4 mg/dL (0.2-1.3); Blood Urea Nitrogen 11 mg/dL (7-17); CRP < 0.5 mg/dL (<1.0); Calcium 9.3 mg/dL (8.4-10.2); Carbon Dioxide 25 mmol/L (22-30); Chloride 101 mmol/L (98-107); Estimated Glomerular Filt Rate > 60; Glucose 95 mg/dL (65-110); Sodium 136 mmol/L (137-145)
[2024-04-05 11:22] LABS: Erythrocyte Sedimentation Rate 19 mm/hr (0-20)
== END 2024-04-05 09:05 | disposition home or self-care (01) ==
PROVIDERS: PCP Family Medicine; Visit Provider Internal Medicine Hematology & Oncology
DX: D72.829 Elevated white blood cell count, unspecified (principal)
CPT/HCPCS: 36415; 80053; 85025; 85652; 86140; 88184

== ENCOUNTER 2024-06-25 09:21 | Outpatient (CLI) | payer MEDICARE, SELFPAY ==
[2024-06-25 11:12] LABS: Alanine Aminotransferase 21 U/L (6-35); Albumin Level 4.2 g/dL (3.5-5.1); Alkaline Phosphatase 106 U/L (38-126); Anion Gap 5 mmol/L (4-12); Aspartate Amino Transferase 30 U/L (14-36); Bilirubin,Total 0.7 mg/dL (0.2-1.3); Blood Urea Nitrogen 9 mg/dL (7-17); Calcium 9.3 mg/dL (8.4-10.2); Carbon Dioxide 25 mmol/L (22-30); Chloride 105 mmol/L (98-107); Cholesterol 202 mg/dL (0-200); Estimated Glomerular Filt Rate > 60; Glucose 101 mg/dL (65-110); HDL Direct 43 mg/dL; Potassium 4.4 mmol/L (3.4-5.0); Sodium 135 mmol/L (137-145); Triglycerides 164 mg/dL (<150)
[2024-06-25 11:22] LABS: LDL Cholesterol Direct 106 mg/dL
--- OUTSIDE RECORDS SUMMARY | 2024-07-02 04:43 | XMS_ITS | Encounter Summary ---
Author Organization [facility] Address [address] [place] [address] Care Team Providers Care Assistant Professor Of Biology Name Role Phone Camron Flowers MD Primary Care Provider [phone] Encounter Details Date Type Department Care Team (Latest Contact Info) Description 05/17/2017 Hospital Outpatient Visit [facility] Gastroenterology and Hepatology [address] [place] [address] Shola Cunha MD [address] [facility] [address] [place] [address] Discharge Disposition: Home or Self Care Social History Tobacco Use Types Packs/Day Years Used Date Smoking Tobacco: Never Assessed Sex and Gender Information Value Date Recorded Sex Assigned at Not on file Gender Identity Not on file Sexual Orientation Not on file documented as of this encounter Plan of Treatment Not on file documented as of this encounter Visit Diagnoses Not on filedocumented in this encounter Care Teams Assistant Professor Of Biology Relationship Specialty Start Date End Date Camron Flowers MD [address] [facility] [address] [facility] [address] [place] [address] PCP - General 01/27/17 10/14/21 documented as of this encounter
--- OUTSIDE RECORDS SUMMARY | 2024-07-02 04:43 | XMS_ITS | Patient Health Summary ---
Author Organization [facility] Address [address] [facility] [place] [address] Care Team Providers Care Export Freight Manager Name Role Phone Suman Hess DO Primary Care Provider [phone] Note from [facility],non-owned Affiliates and Associated Physician Practices is amultiple site organization consisting of ambulatory clinics and hospital sitesin [place], [place] and [place]. This disclosure is being madepursuant to the Care Everywhere program and may not contain all information available regarding this patient. Last updated 18.[facility] Social History Tobacco Use Types Packs/Day Years Used Date Smoking Tobacco: Never Assessed Sex and Gender Information Value Date Recorded Sex Assigned at Not on file Gender Identity Not on file Sexual Orientation Not on file Care Teams Export Freight Manager Relationship Specialty Start Date End Date Suman Hess DO [address] [place] [address] PCP - General 10/15/21
--- OUTSIDE RECORDS SUMMARY | 2024-07-02 04:43 | XMS_ITS | Encounter Summary ---
Author Organization [facility] Address [address] [place] [address] Care Team Providers Care Cashier And Salesperson Name Role Phone Riki Lou MD Primary Care Provider [phone] Encounter Details Date Type Department Care Team (Late st Contact Info) Description 04/10/2024 External Device Data [facility] ABSTRACTION Provider, Abstract NO ADDRESS ON FILE Social History Tobacco Use Types Packs/Day Years Used Date Smoking Tobacco: Former Cigarettes 0.5 45 0 03/03/1979 - 03/03/2024 Smokeless Tobacco: Never Alcohol Use Standard Drinks/Week Comments Not Currently 0 (1 standard drink = 0.6 oz pur e alcohol) stopped drinking 40 yrs ago Sex and Gender Information Value Date Recorded Sex Assigned at Not on file Gender Identity Not on file Sexual Orientation Not on file documented as of this encounter Plan of Treatment Upcoming Encounters Date Type Department Care Team (Late st Contact Info) Description 10/24/2024 11:45 AM CDT Office Visit [facility] Oncology and Hematology - José Miguel [address] [address] Candelario Saha MD [address] [facility] [address] [place] [address] documented as of this encounter Visit Diagnoses Not on filedocumented in this encounter Care Teams Cashier And Salesperson Relationship Specialty Start Date End Date Riki Lou MD [address] [place] [address] PCP - General Family Practice 04/03/24 documented as of this encounter
--- OUTSIDE RECORDS SUMMARY | 2024-07-02 04:43 | XMS_ITS | Encounter Summary ---
Author Organization [facility] Address [facility] [facility] [place], [place] [address] [place] [address] Care Team Providers Care Hand Reamer Name Role Phone Unavailable Primary Care Provider Unavailabl e Encounter Details Date Type Department Care Team (Late st Contact Info) Description 09/23/1994 [place] [address] , Generic Conversion, Social History Tobacco Use Types Packs/Day Years Used Date Smoking Tobacco: Never Assessed Comments Unknown Sex and Gender Information Value Date Recorded Sex Assigned at Not on file Legal Sex Female 5:05 PM CDT Gender Identity Not on file Sexual Orientation Not on file documented as of this encounter Plan of Treatment Not on file documented as of this encounter Visit Diagnoses Not on filedocumented in this encounter
--- OUTSIDE RECORDS SUMMARY | 2024-07-02 04:43 | XMS_ITS | Encounter Summary ---
Author Organization [facility] Address [address] [place] [address] Care Team Providers Care Filenet Architect Name Role Phone Riki Lou MD Primary Care Provider [phone] Encounter Details Date Type Department Care Team [...] Description 10/24/2024 11:45 AM CDT Office Visit [facility] Oncology and Hematology - José Miguel [address] [address] Candelario Saha MD [address] [facility] [address] [place] [address] documented as of this encounter Visit Diagnoses Not on filedocumented in this encounter Care Teams Filenet Architect Relationship Specialty Start Date End Date Riki Lou MD [address] [place] [address] PCP - General Family Practice 04/03/24 documented as of this encounter
--- OUTSIDE RECORDS SUMMARY | 2024-07-02 04:43 | XMS_ITS | Encounter Summary ---
Author Organization [facility] [employer] [facility] Address [address] [place] [address] Care Team Providers Care V Belt Coverer Name Role Phone Riki Lou MD Primary Care Provider [phone] Encounter Details Date Type Department Care Team (Late st Contact Info) Description 04/04/2024 Abstract [facility] Oncology and Hematology José Miguel [address] [place] [address] Candelario Saha MD [address] [place], [place] [address] [address] [place] [address] Social History Tobacco Use Types Packs/Day Years [...] Description 10/24/2024 11:45 AM CDT Office Visit [facility] Oncology and Hematology José Miguel [address] [place] [address] Candelario Saha MD [address] [place] [address] documented as of this encounter Visit Diagnoses Not on filedocumented in this encounter Care Teams V Belt Coverer Relationship Specialty Start Date End Date Riki Lou MD [address] [place] [address] PCP - General Family Practice 04/03/24 documented as of this encounter
--- OUTSIDE RECORDS SUMMARY | 2024-07-02 04:43 | XMS_ITS | Encounter Summary ---
Author Organization [facility] Address Critical access hospital[facility]. [place], [place] [address] [place] [address] Care Team Providers Care Family Program Specialist Name Role Phone Unavailable Primary Care Provider Unavailabl e Encounter Details Date Type Department Care Team (Late st Contact Info) Description 01/24/1991 Abstract [place] [address] , Generic Conversion, Social History Tobacco Use [...]
--- OUTSIDE RECORDS SUMMARY | 2024-07-02 04:43 | XMS_ITS | Referral Summary ---
Author Organization [facility] Address [address] [facility] [place] [address] Care Team Providers Care Rigging Loft Repairer Name Role Phone Suman Hess Primary Care Provider [phone] Source Comments [facility],non-owned Affiliates and Associated Physician Practices is amultiple site organization consisting of ambulatory clinics and hospital sitesin [place], [place], [place] and [place]. This disclosure is being madepursuant to the Care Everywhere program and may not contain all information available regarding this patient. Last updated 18.[facility] [employer] Social History Tobacco Use Types Packs/Day Years Used Date Smoking Tobacco: Never Assessed Sex and Gender Information Value Date Recorded Sex Assigned at Not on file Gender Identity Not on file Sexual Orientation Not on file Plan of Treatment Not on file Care Teams Rigging Loft Repairer Relationship Specialty Start Date End Date Suman Hess DO [address] [place] [address] PCP - General 10/15/21
--- OUTSIDE RECORDS SUMMARY | 2024-07-02 04:43 | XMS_ITS | Clinical Summary ---
Author Organization [facility] Address [address] [place] [address]. [place], [place] [address] [place] [address] Care Team Providers Care Pool Table Mechanic Name Role Phone Unavailable Primary Care Provider Unavailabl e Social History Tobacco Use Types Packs/Day Years Used Date Smoking Tobacco: Never Assessed Comments Unknown Sex and Gender Information Value Date Recorded Sex Assigned at Not on file Legal Sex Female 5:05 PM CDT Gender Identity Not on file Sexual Orientation Not on file Plan of Treatment Health Maintenance Due Date Last Done Comments Colorectal Cancer Screening Colonoscopy (10 Years) 1960 Hepatitis C 1976 DTaP, Tdap and Td Vaccines ( 1 - Tdap) 1977 Mammogram Screening 1998 Zoster Vaccines (1 of 2) 2008 Dexa Scan (General) 2023 Pneumococcal Vaccine: 65+ Ye ars (1 of 1 - PCV) 2023 COVID-19 Vaccine ( - 2023-2 5 season) 2024 Influenza Adult (#1) 2024 RSV Immunization or 60+ Years (1 - 1-dose 75+ series) 2033 Meningococcal Vaccine Aged Out No rehana evette eligible based on patient's age to complete this topic Pneumococcal Vaccine: Pediat rics (0 to 5 Years) and At-Risk Patients (6 to 64 Years) Aged Out No longer eligible b ased on patient's age to complete this topic RSV Immunizations Under 20 Months Aged Out No longer eligible based on patient's age to complete this topic
--- OUTSIDE RECORDS SUMMARY | 2024-07-02 04:43 | XMS_ITS | Encounter Summary ---
Author Organization [facility] Address [facility]. [place], [place] [address] [place] [address] Care Team Providers Care Rail Assembler Name Role Phone Unavailable Primary Care Provider Unavailabl e Encounter Details Date Type Department Care Team (Late st Contact Info) Description 07/13/1991 Abstract [place] [address] , Generic Conversion, Social History Tobacco Use [...]
--- OUTSIDE RECORDS SUMMARY | 2024-07-02 04:43 | XMS_ITS | Encounter Summary ---
Author Organization [facility] [employer] [facility] Address [address] [place] [address] Care Team Providers Care Composition Board Press Operator Name Role Phone Riki Lou MD Primary Care Provider [phone] Reason for Visit * Reason Comments Follow Up Encounter Details Date Type Department Care Team (Late st Contact Info) Description 04/25/2024 1:00 PM CDT Office Visit [facility] Oncology and Hematology - José Miguel [address] [facility] [address] [place] [address] Candelario Saha MD [address] [facility] [address] [place] [address] Leukocytosis, unspecified type (Primary Dx) Social History Tobacco Use Types Packs/Day Years Used Date Smoking Tobacco: Former Cigarettes 0.5 45 0 03/03/1979 - 03/03/2024 Smokeless Tobacco: Never Tobacco Cessation:Counseling Given: Not Answered Alcohol Use Standard Drinks/Week Comments Not Currently 0 (1 standard drink = 0.6 oz pur e alcohol) stopped drinking 40 yrs ago Sex and Gender Information Value Date Recorded Sex Assigned at Not on file Gender Identity Not on file Sexual Orientation Not on file documented as of this encounter Last Filed Vital Signs Vital Sign Reading Time Taken Comments Blood Pressure 145/74 04/25/2024 1:11 PM CDT patient said shes been having a lot of anxiety today Pulse 90 04/25/2024 1:11 PM CDT Temperature 36.8 ??C (98.2 ??F) 04/25/2024 1 :11 PM CDT Respiratory Rate 16 04/25/2024 1:11 PM CDT Oxygen Saturation 96% 04/25/2024 1:1 1 PM CDT Inhaled Oxygen Concentration - - Weight 58.1 kg (128 lb) 04/25/2024 1:11 PM CDT Height - - Body Mass Index 24.19 04/03/2024 10:28 AM CDT documented in this encounter Progress Notes * Candelario Saha MD - 04/25/2024 1:19 PM CDT HEMATOLOGY / ONCOLOGY PROGRESS NOTE Patient Identification: Name: Janeen Ferro Age: 63 y.o. Sex: female : 1960 DIAGNOSIS Reactive leukocytosis CURRENT TREATMENT Expectant TREATMENT HISTORY SUBJECTIVE Patient came into the office for follow-up visit. She has quit smoking 6 weeks ago. She is complaining of right knee and hip arthralgia. Denies any new lumps on the lymphadenopathy. No other new complaints. Review of system Constitutional: Patient did not mention fevers, sweats, fatigue, malaise, weight loss HEENT: Patient did not mention sinus congestion, hearing or vision problems Respiratory: Patient did not mention cough, dyspnea, wheeze Cardiovascular: Patient did not mention chest pain, exertional chest pressure/discomfort, nausea, syncope, shortness of breath GI: Patient did not mention constipation, diarrhea, dsyphagia, reflux symptoms, vomiting, melena : Patient did not mention dysuria, frequency, incontinence, urgency Integumentary system: no lymphadenopathy, sweats, flushing Musculoskeletal: Patient not mention: myalgia, hip and knee arthralgia Neurological: Patient did not mention blurry or disturbed vision, numbness/weakness, dizziness Skin: No lumps, bumps or rashes. Objective: Vital signs in last 24 hours: As per nursing note Exam: General appearance: alert, cooperative, no distress, appears stated age Head: normocephalic, without obvious abnormality, atraumatic Eyes: conjunctivae/corneas clear, EOM's intact Ears: normal external ear canals AU Nose: Nares normal. Septum midline. Mucosa normal. No drainage or sinus tenderness Throat: Lips, mucosa, and tongue normal. Teeth and gums normal Neck: supple, symmetrical, trachea midline. Lungs: clear to auscultation bilaterally Heart: regular rate and rhythm, S1, S2 normal, no murmur, click, rub or gallop Abdomen: soft, non-tender. Bowel sounds normal. No masses, No organomegaly Extremities: extremities normal, atraumatic, no cyanosis or edema Skin: Skin color, texture, turgor normal. No rashes or lesions Lymph nodes: No lymphadenopathy Neuro: No obvious focal deficit PATH LABS Labs from April 05 showed C-reactive protein less than 0.5 sedimentation rate 19 WBC 10.7 hemoglobin 13.4 platelet 311,000 @IMAGEIMP@ Assessment: Plan: There are no problems to display for this patient. Reactive leukocytosis. Flow cytometric analysis showed no evidence of leukemia and lymphoma. Reactive markers are normal. WBC count has come down and it is improving. Clinically she is asymptomatic other than some arthralgia. No need for bone marrow biopsy. I will plan to see her back in 6 months with repeat labs. GERD. She is on Prilosec. Hyperlipidemia. Patient is on Zetia and Crestor. ? TOBACCO COUNSELING She is not a tobacco/nicotine user. 04/25/2024 Candelario Saha MD documented in this encounter Plan of Treatment Upcoming Encounters Date Type Department Care Team (Late st Contact Info) Description 10/24/2024 11:45 AM CDT Office Visit [facility] Oncology and Hematology - Jsoé Miguel [address] [facility] [address] [place] [address] Candelario Saha MD [address] [facility] [address] [place] [address] Scheduled Orders Name Type Priority Associated Diagnoses Orde r Schedule CBC WITH DIFFERENTIAL Lab Stat Leukocytosis, unspecified type Expected: 10/24/2024, Expires: 04/25/2025 documented as of this encounter Visit Diagnoses Diagnosis Leukocytosis, unspecified type- Primary documented in this encounter Care Teams Composition Board Press Operator Relationship Specialty Start Date End Date Riki Lou MD [address] [place] [address] PCP - General Family Practice 04/03/24 documented as of this encounter
--- OUTSIDE RECORDS SUMMARY | 2024-07-02 04:43 | XMS_ITS | Data Portability ---
Author Organization [employer] [facility], Main Office Address [address] [place] [address] Assessment Encounter Date Assessment Date Assessment LastModified by Organization Details LastModified Time 03/22/2023 03/22/2023 This note is dictated and transcribed by [employer]. [employer] Tier Off variances may occur. Despite proofreading, typographical errors may occur. [email or web address] Not available 03/22/2023 10:44:34 Plan of Treatment Reminders Order Date Submit Date Provider Last Modified By Organization Details Last Modified Time Details Appointments None record ed. Lab None record ed. Referral None record ed. Procedures None record ed. Surgeries None record ed. Imaging XR, foot, 3 or more view 023 03/22/[address] ([employer]), [address] [place], [address], 3 08:32:16 Medication Orders None record ed. Patient TargetsNo targets recorded. Patient InstructionsNo instructions recorded. Reason for Referral None Reported. Problems Name Problem SNOMED Code Status Onset Date Resolution Date Notes Provider Name and Address Organization Details Recorded Time Depressive disorder 37652011 Active 2022 Irma israel [facility] 3 10:06:24 Osteoporos is 61441678 Active 2022 Irma israel [facility] 3 10:06:34 Neuralgia 64826985 Active 2022 Raymond De Paz DPM [address] [facility], [facility] [address], [place], [address] , [facility] 3 10:43:35 Pain in right foot 5560580843872 07 Active 2022 Raymond De Paz DPM [address] [facility], [address], [place], [address] , [facility] 3 10:45:00 Notes:BACK/NECK PROBLEMS Problem Notes None recorded. Procedures Surgical History Date Name Laterality Status Provider Name and Address Organization Details Recorded Time 3 Neuroma Injection 6217 completed Raymond De Paz DPM [address], [address], [place], [address], [employer] [facility] [employer] 03/22/2023 10:43:28 Imaging Results None recorded. Procedure Notes None recorded. Medical Equipment None Reported. Allergies No known drug allergies Medications Name Sig Start Date Stop Date Status Note LastModified by Organization Details LastModified Time atorvastati n 40 mg tablet 03/22 completed Not Available Not Available Not Available atorvastati n 80 mg tablet 03/22 completed Not Available Not Available Not Available omeprazole 40 mg capsule,del ayed release 40 MG ORALLY DAILY active Not Available Not Available No t Available rosuvastati n 40 mg tablet TAKE 1 TABLET BY MOUTH EVERYDAY AT BEDTIME active Not Available Not Available No t Available Vitals Date Recorded Body height Body mass index (BMI) Body weight Provider Name and Address Organization Details Last Updated DateTime 03/22/2023 167.64 cm 19.4 kg/m2 82241.08 g Irma Celestin [facility] [employer] 03/22/2023 10:05:49 Date Recorded Body height Body mass index (BMI) Body weight Heart rate Respiratory rate Oxygen saturation Oxygen saturation in Arterial blood by Pulse oximetry Systolic blood pressure Diastolic blood pressure Provider Name and Address Organization Details Last Updated DateTime 3 167.64 cm 19.4 kg/m2 12153.5 5 g 97 /min 14 /min 99 % 99 % 138 mm[Hg] 84 mm[Hg] Mariia Copeland [facility] 15:38:44 Social History Question Answer Notes LastModified by Organizat ion Details LastModified Time Tobacco Smoking Status Former Smoker Irma israel [facility] 03/22/2023 10:07:04 What Is Your Level Of Alcohol Consumption? None [email or web address] Information not available 03/22/2023 Sex: Unknown Functional Status None recorded. Mental Status None recorded. Family History Nothing Reported. Medical History Condition Response OSTEOPOROSIS Y DEPRESSION (INCLUDING POST ) Y BACK / NECK PROBLEMS Y Gynecological HistoryNo gynecological history recorded. Obstetrics History GPAL:G 0 P 0 0 0 0 Past Encounters Encounter ID Performer Location Encounter Start Date Encounter Closed Date Diagnosis/Indication Diagnosis SNOMED-CT Code Diagnosis ICD10 Code [id number] Raymond De Paz DPM [facility] [address], [address] [address] 03/22/2023 10:00:03 03/22/2023 13:29:09 Neuralgia 55531654 M79.2 Pain in right foot 24178 [address] 31282 M79.033 [id number] Raymond De Paz DPM [facility] [address], [address] [address] 04/19/2023 15:32:28 04/19/2023 16:08:19 Neuralgia 09324576 M79.2 Health Concerns Section Related Observation LastModified by Organization Detai ls LastModified Time None Recorded Concern Status LastModified by Organization Details LastModified Time None Recorded Advance Directives Directive None Recorded Payers Encounter Date Sequence Insurance Name Policy Number Policy Sorensen Covered Member ID Sorensen Member ID Guarantor Name 03/22/2023 1 [facility] (MEDICARE REPLACEMENT HMO) Janeen Ferro [id number] Janeen Ferro 03/22/2023 2 [place] Janeen Ferro [id number] Janeen Ferro 04/19/2023 1 [facility] (MEDICARE REPLACEMENT HMO) Janeen Ferro [id number] Janeen Ferro 04/19/2023 2 [place] Janeen Ferro [id number] Janeen Ferro Notes Date Note Type Note Provider Name and Address Organization Details Recorded Time 03/22/2023 text/html . Patient is a 62-year-old female who presents the office with complaints of pain to her right foot. Patient denies any injury to the foot. Patient states that she has numbness and tingling that travels through her 4th and 5th toes. Patient denies any open wounds or infection. Patient states the pain is worse when she is standing walking. Patient denies any other complaints. Raymond De Paz DPM [address], [place], [address], [employer] [facility] [employer] [facility] 03/22/2023 14:44:52 04/19/2023 text/html . Patient is a 62-year-old female who returns the office for follow-up on right foot pain. Patient at last visit underwent a injection which completely resolved her discomfort. Patient states she is no longer having any pain. Patient denies any other complaints or signs of infection. Raymond De Paz DPM [address], [address], [place], [address], [facility] 04/19/2023 16:04:23 OBGyn Episode No OBEpisode recorded.
--- OUTSIDE RECORDS SUMMARY | 2024-07-02 04:43 | XMS_ITS | Encounter Summary ---
Author Organization [facility] Address [facility]. [place], [place] [address] [place] [address] Care Team Providers Care Rush Seater Name Role Phone Unavailable Primary Care Provider Unavailabl e Encounter Details Date Type Department Care Team (Late st Contact Info) Description 04/22/1994 Abstract [place] [address] , Generic Conversion, Social History Tobacco Use [...]
--- OUTSIDE RECORDS SUMMARY | 2024-07-02 04:43 | XMS_ITS | Encounter Summary ---
Author Organization [facility] Address [address] [place] [place] [address] Phone Care Team Providers Care Blending Line Attendant Name Role Phone Camron Flowers MD Primary Care Provider Encounter Details Date Type Department Care Team (Late st Contact Info) Description 01/01/2020 Telephone [facility] - Gastroenterology [facility] [address] [place] [address] Marcelo Coleman, DO [address] [facility] [address] [place], [place] [id number] Social History Tobacco Use Types Packs/Day Years Used Date Smoking Tobacco: Every Day Cigarettes 0.5 20 Smokeless Tobacco: Never Alcohol Use Standard Drinks/Week Comments No 0 (1 standard drink = 0.6 oz pur e alcohol) Comments Unknown Sex and Gender Information Value Date Recorded Sex Assigned at Not on file Legal Sex Female 12:55 PM PRIVATE CHEF Gender Identity Not on file Sexual Orientation Not on file documented as of this encounter Miscellaneous Notes * Telephone Encounter - Azul Bradshaw - 01/01/2020 8:57 AM CDT Unable to reach patient for referral; 3rd attempt documented in this encounter Plan of Treatment Not on file documented as of this encounter Visit Diagnoses Not on filedocumented in this encounter Care Teams Blending Line Attendant Relationship Specialty Start Date End Date Camron Flowers MD [address] [address] PCP - General Internal Medicine 07/19/16 documented as of this encounter
--- OUTSIDE RECORDS SUMMARY | 2024-07-02 04:43 | XMS_ITS | Encounter Summary ---
Author Organization [facility] JULIA Lanza [facility] Address [address] [place] [address] Care Team Providers Care Environmental Services Attendant Name Role Phone Riki Lou MD Primary Care Provider [phone] Reason for Visit * Reason Comments Establish Care Encounter Details Date Type Department Care Team (Late st Contact Info) Description 04/03/2024 10:30 AM CDT Office Visit [facility] [place] Oncology and Hematology - [place] [address] [facility] [address] [place] [address] Candelario Saha MD [address] [facility] [address] [place] [address] Leukocytosis, unspecified type (Primary Dx) [...] Sign Reading Time Taken Comments Blood Pressure 134/69 04/03/2024 10:28 AM CDT Pulse 81 04/03/2024 10:28 AM CDT Temperature 36.8 ??C (98.2 ??F) 04/03/2024 10:28 AM C DT Respiratory Rate 15 04/03/2024 10:28 AM CDT Oxygen Saturation 96% 04/03/2024 10:28 AM CDT Inhaled Oxygen Concentration - - Weight 57.3 kg (126 lb 6.4 oz) 04/03/2024 10:28 AM CDT Height 154.9 cm (5' 1 ) 04/03/2024 10:28 AM CDT Body Mass Index 23.88 04/03/2024 10:28 AM CDT documented in this encounter Progress Notes * Candelario Saha MD - 04/03/2024 5:59 PM CDT Hematology-oncology consult Note Requesting Physician Riki Lou MD Primary Care Physician Riki Lou MD Problem list There is no problem list on file for this patient. Previous TREATMENT ? Measurable Disease ? Reason for Visit Janeen Ferro is a 63 y.o. female who was referred for consultation for leukocytosis. History of present illness This is a pleasant 63-year-old female with history of osteoporosis, hyperlipidemia, GERD referred to me for leukocytosis going on for 1 year duration. She quit smoking about 1 month ago. Hedoes have arthritis involving the right shoulder right hip right knee and right ankle. She denies any night sweats fever chills and weight loss. She denies any new lumps bumps or lymphadenopathy. Labs from February 08 showed WBC 12.1 hemoglobin 13.2. She has no previous history of malignancy. Past Medical History Past Medical History: Diagnosis Date Depression Hyperlipidemia Ulcerative colitis Surgical History Past Surgical History: Procedure Laterality Date HX APPENDECTOMY 1977 HX KNEE REPLACEMENT 1999 HX LASER EYE SURGERY HX SHOULDER SURGERY 2014 Medications Current Outpatient Medications Medication Sig Dispense Refill ezetimibe (ZETIA) 10 mg tablet Take 1 Tablet by mouth daily. rosuvastatin (CRESTOR) 40 mg tablet Take 40 mg by mouth daily at bedtime. omeprazole (PriLOSEC) 40 mg Capsule, Delayed Release(E.C.) Take 40 mg by mouth daily. No current facility-administered medications for this visit. Allergies No Known Allergies Immunizations: There is no immunization history on file for this patient. Family History Family History Problem Relation Name Age of Onset No Known Problems Father adopted Alcohol abuse Mother adopted Heart Disease Brother No Known Problems Child No Known Problems Child Social History Social History Tobacco Use Smoking status: Former Current packs/day: 0.00 Average packs/day: 0.5 packs/day for 45.0 years (22.5 ttl pk-yrs) Types: Cigarettes Start date: 03/03/1979 Quit date: 03/03/2024 Years since quittin.0 Smokeless tobacco: Never Substance Use Topics Alcohol use: Not Currently Comment: stopped drinking 40 yrs ago Review of Systems Constitutional: Patient did not mention fever; no night sweats; no anorexia; no weight loss; no fatique NEENT: Patient did not mention headache; no change in vision; no change in hearing; no sore throat;no dysphagia Respiratory: Patient did not mention shortness of breath; no pleuritic chest pain; no cough; no hemoptysis Cardiac: Patient did not mention cardiac-like chest pain; no palpitations; no orthopnea; no PND; noDOE Breasts: Patient did not mention tenderness; no masses GI: Patient did not mention abdominal pain; no nausea; no vomiting; no diarrhea; no hematochezia; no melena : Patient did not mention dysuria; no frequency; no hesitancy; no hematuria BOTTLE BLOWER: Musculosketetal: Patient did not mention bone pain; arthralgia involving the right shoulder, hip, ankle and knees; no joint swelling; no myalgia; Skin: Patient did not mention pruritis; no rash; no petechiae; no ecchymoses Endocrine: Patient did not mention polydipsia; no polyuria; no unusual weight gain Neuro: Patient did not mention headache; no change in vision; no sensory changes; no muscle weakness; no confusion; no seizures Psych: Patient did not mention anxiety; no depression; Physical Exam Vitals: As per nursing note Constitutional: Well developed, well nourished, no acute distress, non-toxic appearance Teeth and gum. No signs of infection or swelling. Eyes: PERRL, conjunctiva normal HEENT: Atraumatic, external ears normal, nose normal, oropharynx moist, no pharyngeal exudates. no sinus tenderness Neck- normal range of motion, no tenderness, supple Respiratory: No respiratory distress, normal breath sounds, no rales, no wheezing Cardiovascular: Normal rate, normal rhythm, no murmurs, no gallops, no rubs GI: Soft, nondistended, normal bowel sounds, nontender, no splenomegaly, no hepatomegaly, no mass, no rebound, no guarding : No costovertebral angle tenderness Musculoskeletal: No edema, no tenderness, no deformities. Back- no tenderness Integument: Well hydrated, no rash, Digits and nails inspection normal Lymphatic: No lymphadenopathy noted Neurologic: Alert & oriented x 3, CN 2-12 normal, normal motor function, normal sensory function, no focal deficits noted Psychiatric: Speech and behavior appropriate ? labs No results found for this or any previous visit (from the past 24 hour(s)). Labs from February 08 showed WBC 12.1 hemoglobin 13.2 platelet 302,000 neutrophils 53% lymphocyte 25% Pathology ? Imaging & Other Studies Performance Status? Assessment / Plan: ? Leukocytosis. This is a pleasant 63-year-old female with history of osteoporosis, hyperlipidemia and GERD referred to me for leukocytosis going on for 1 year duration. She is clinically asymptomatic with no signs of infection and malignancy. She has been dealing with arthralgia involving the right shoulder, hip and knees. There is no evidence of lymphadenopathy on my examination. I havediscussed the differential diagnosis of leukocytosis and informed her that likely her leukocytosis is reactive secondary to diffuse arthralgia. I will order the workup that will include CBC with differential, CMP, sedimentation rate, C-reactive protein and flow cytometric analysis for leukemia. Conchiswill be back to see me in 2 to 3 weeks. I do not see need for bone marrow biopsy testing at this time. I have answered all the questions to patient's satisfaction. Hyperlipidemia. Patient is on Crestor and Zetia. GERD. She is on Prilosec. Thank you very much for allowing me to participate in Janeen Ferro's evaluation and management. Please feel free to contact if I can be of any further assistance in your patient???s care requiring hematology or oncology evaluation. Sincerely, ? ? Candelario Saha M.D. cell TOBACCO COUNSELING She is not a tobacco/nicotine user. Candelario Saha MD ,04/03/2024 5:59 PM ? Total time spent 60 minutes, two third of the total time spent counseling patient [id number]. CC:?Riki Lou MD documented in this encounter Plan of Treatment Upcoming Encounters Date Type Department Care Team (Late st Contact Info) Description 10/24/2024 11:45 AM CDT Office Visit [facility] [place] Oncology and Hematology - [place] [address] [place] [address] Candelario Saha MD [address] [facility] [address] [place] [address] Scheduled Orders Name Type Priority Associated Diagnoses Orde r Schedule CBC WITH DIFFERENTIAL Lab Stat Leukocytosis, unspecified type Expected: 04/03/2024, Expires: 04/03/2025 COMPREHENSIVE METABOLIC PANEL Lab Stat Leukocytosis, unspecified type Expected: 04/03/2024, Expires: 04/03/2025 C-REACTIVE PROTEIN Lab Routine Leukocytosis, unspecified type Expected: 04/03/2024, Expires: 04/03/2025 FLOW CYTOMETRY PANEL Lab Routine Leukocytosis, unspecified type Expected: 04/03/2024, Expires: 04/03/2025 SEDIMENTATION RATE Lab Routine Leukocytosis, unspecified type Expected: 04/03/2024, Expires: 04/03/2025 documented as of this encounter Visit Diagnoses Diagnosis Leukocytosis, unspecified type- Primary documented in this encounter Care Teams Environmental Services Attendant Relationship Specialty Start Date End Date Riki Lou MD [address] [place] [address] PCP - General Family Practice 04/03/24 documented as of this encounter
--- OUTSIDE RECORDS SUMMARY | 2024-07-02 04:43 | XMS_ITS | Encounter Summary ---
Author Organization [facility] SATHISHAfterYes [facility] Address [address] [place] [address] Care Team Providers Care Conference Planning Manager Name Role Phone Riki Lou MD Primary Care Provider [phone] Encounter Details Date Type Department Care Team (Late st Contact Info) Description 04/09/2024 Orders Only [facility] Oncology and Hematology [facility] [address] [place] [address] Candelario Saha MD [address] [place], [place] [id number] [address] [place] [address] Social History Tobacco Use Types Packs/Day [...] Description 10/24/2024 11:45 AM CDT Office Visit [facility] Oncology and Hematology [address] [place] [address] Candelario Saha MD [address] [place] [address] documented as of this encounter Procedures Procedure Name Priority Date/Time Associated Diagnosis Comments FLOW CYTOMETRY REPORT Routine 04/05/2024 1:08 PM CDT documented in this encounter Results * FLOW CYTOMETRY REPORT (04/05/2024 1:08 PM CDT) Candelario Saha MD PATHOLOGY/CYTOLOGY O DOMOERABRI documented in this encounter Visit Diagnoses Not on filedocumented in this encounter Care Teams Conference Planning Manager Relationship Specialty Start Date End Date Riki Lou MD [address] [place] [address] PCP - General Family Practice 04/03/24 documented as of this encounter
--- OUTSIDE RECORDS SUMMARY | 2024-07-02 04:43 | XMS_ITS | Clinical Summary ---
Author Organization [facility] Address [address] [facility] [place] [address] Care Team Providers Care Die Repairer Forging Name Role Phone Suman Hess Primary Care Provider [phone] Source Comments [facility],non-owned Affiliates and Associated Physician Practices is amultiple site organization consisting of ambulatory clinics and hospital sitesin [place], [place], [place] and [place]. This disclosure is being madepursuant to the Care Everywhere program and may not contain all information available regarding this patient. Last updated 18.[email or web address] [email or web address] Social History Tobacco Use Types Packs/Day Years Used Date Smoking Tobacco: Never Assessed Sex and Gender Information Value Date Recorded Sex Assigned at Not on file Gender Identity Not on file Sexual Orientation Not on file Plan of Treatment Health Maintenance Due Date Last Done Comments BONE DENSITY TESTING 1960 COLOGUARD (AGES 45-75) - COL ON CA SCREENING 1958 COLON MONITORING 1958 COLONOSCOPY - COLON CA SCREENING 1958 CT COLONOGRAPHY - COLON CA SCREENING 1958 Colorectal Cancer Screening 1958 FIT - COLON CA SCREENING 1958 FLEX SIG - COLON CA SCREENING 1958 LIPID TESTING 1958 MAMMOGRAM 1958 PAP SMEAR 1958 HIV SCREENING 1973 HEPATITIS C SCREENING 08/31/1976 DTAP/TDAP/TD VACCINES (1 - Tdap) 1977 ZOSTER VACCINE (1 of 2) 2008 DEPRESSION SCREENING 07/11/2023 PNEUMOCOCCAL VACCINE 65+ (1 of 1 - PCV) 2023 COVID-19 VACCINE ( - 2023-2 5 season) 2024 INFLUENZA VACCINE (#1) 2024 Respiratory Syncytial Virus (RSV) Vaccine Pt: or over 60 yrs (1 - 1-dose 75+ series) 2033 HEPATITIS B VACCINE Aged Out No longe r eligible based on patient's age to complete this topic HIB VACCINE Aged Out No longer eligi ble based on patient's age to complete this topic HPV VACCINE Aged Out No longer eligi ble based on patient's age to complete this topic MENINGOCOCCAL VACCINE Aged Out No rehana evette eligible based on patient's age to complete this topic Care Teams Die Repairer Forging Relationship Specialty Start Date End Date Suman Hess DO [address] [place] [address] PCP - General 10/15/21
--- OUTSIDE RECORDS SUMMARY | 2024-07-02 04:43 | XMS_ITS | Encounter Summary ---
Author Organization [facility] Address [address] [place] [address] Care Team Providers Care Pole Setter Name Role Phone Riki Lou MD Primary Care Provider [phone] Encounter Details Date Type Department Care Team [...] Description 10/24/2024 11:45 AM CDT Office Visit [facility] Oncology and Hematology - José Miguel [address] [address] Candelario Saha MD [address] [facility] [address] [place] [address] documented as of this encounter Visit Diagnoses Not on filedocumented in this encounter Care Teams Pole Setter Relationship Specialty Start Date End Date Riki Lou MD [address] [place] [address] PCP - General Family Practice 04/03/24 documented as of this encounter
--- OUTSIDE RECORDS SUMMARY | 2024-07-02 04:43 | XMS_ITS | Clinical Summary ---
Author Organization [facility] Address [address] [address] Phone Care Team Providers Care Biometrics Instructor Name Role Phone Camron Flowers MD Primary Care Provider [phone] Allergies No known active allergies Medications polyethylene glycol (MIRALAX) Powder Use entire 255g bottle with 64oz of clear liquid as directed for colonoscopy prep. 255 g 0 7 Active lamoTRIgine (LAMICTAL) 100 MG Tablet Take 100 mg by mouth nightly. Active atorvastatin (LIPITOR) 20 MG Tablet Take 20 mg by mouth daily. Active PARoxetine (PAXIL) 20 MG Tablet Take 20 mg by mouth nightly. Active omeprazole (PRILOSEC) 40 MG CAPSULE DELAYED RELEASE Take 40 mg by mouth daily. Active Cholecalcifero l (VITAMIN D PO) 50,000 Units by Intramuscular route every 30 days. 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 Gender Identity Not on file Sexual Orientation Not on file Plan of Treatment Health Maintenance Due Date Last Done Comments DEXA Bone Density 1960 Hepatitis C Virus (HCV) Screening 1958 TdaP Immunization 1958 Pap Smear 1979 Cervical Cancer Screening (CCS) 1988 HPV/Cotest 1988 Cologuard 2008 Immunochemical Fecal Occult Blood 2008 Mammogram 2008 Zoster Immunization (1 of 2) 2008 Colonoscopy 10/21/2017 10/21/2016 Colorectal Cancer Screening 10/21/2017 SARS-COV-2 Immunization (1 - 2022-24 season) 2023 Pneumococcal Immunization (5 0+ years) (1 of 1 - PCV) 2023 Influenza Immunization (Seas on Ended) 2024 10/21/2016 Hepatitis B Immunization Aged Out No longer eligible based on patient's age to complete this topic Meningococcal Immunization (ACWY) Aged Out No longer eligible based on patient's age to complete this topic Rotavirus Immunization Aged Out No lo nger eligible based on patient's age to complete this topic Procedures Procedure Name Priority Date/Time Associated Diagnosis Comments COLONOSCOPY Routine 10/21/2016 from Last 3 Months or Most Recently Relevant to Health Maintenance Results * COLONOSCOPY (10/21/2016) Camron Flowers MD PROCEDURE/MINOR SURGICAL ORDER JACK Final Result from Last 3 Months or Most Recently Relevant to Health Maintenance Insurance MEDICARE C [employer] Care Teams Biometrics Instructor Relationship Specialty Start Date End Date Camron Flowers MD [address] [place] [address] PCP - General Internal Medicine 07/19/16
--- OUTSIDE RECORDS SUMMARY | 2024-07-02 04:43 | XMS_ITS | Clinical Summary ---
Author Organization [facility] Mechelle adrianna Palacios Address [address] [place] [address] Care Team Providers Care Sheet Metal Worker Name Role Phone Riki Lou MD Primary Care Provider [phone] Allergies No known active allergies Medications Medication Sig Dispensed Refills Start Date End Date Status ezetimibe (ZETIA) 10 mg tablet Take 1 Tablet by mouth daily. 02/07/2024 Active omeprazole (PriLOSEC) 40 mg Capsule, Delayed Release(E.C.) Take 40 mg by mouth daily. Active rosuvastatin (CRESTOR) 40 mg tablet Take 40 mg by mouth daily at bedtime. 02/07/2024 Active Active Problems No known active problems Encounters Date Type Department Care Team Description 04/25/2024 1:00 PM CDT Office Visit [facility] Oncology and Hematology - [place] [address] [place] [phone] Candelario Saha MD Leukocytosis, unspecified type (Primary Dx) 04/10/2024 External Device Data STL ABSTRACTION Provider, Abstract 04/10/2024 External Device Data STL ABSTRACTION Provider, Abstract 04/10/2024 External Device Data STL ABSTRACTION Provider, Abstract 04/09/2024 Orders Only [facility] Oncology and Hematology - [place] [address] [place] [address] Candelario Saha MD 04/05/2024 Orders Only [facility] Oncology and Hematology - [place] [address] [place] [address] Candelario Saha MD 04/04/2024 Abstract [facility] Oncology and Hematology - [place] [address] [place] [address] Candelario Saha MD 04/03/2024 10:30 AM CDT Office Visit [facility] Oncology and Hematology [facility] [address] [place] [address] Candelario Saha MD Leukocytosis, unspecified type (Primary Dx) from Last 3 Months Family History Medical History Relation Name Comments Heart Disease Brother No Known Problems Child 1 No Known Problems Child 2 No Known Problems Father adopted Alcohol abuse Mother adopted Relation Name Status Comments Brother Alive Child 1 Alive Child 2 Alive Father adopted Mother adopted Social History Tobacco Use Types Packs/Day Years [...] on file Sexual Orientation Not on file Last Filed Vital Signs Vital Sign Reading [...] (128 lb) 04/25/2024 1:11 PM CDT Height 154.9 cm (5' 1 ) 04/03/2024 10:2 8 AM CDT Body Mass Index 24.19 04/03/2024 10:28 AM CDT Plan of Treatment Upcoming Encounters Date Type Department Care Team (Late st Contact Info) Description 10/24/2024 11:45 AM CDT Office Visit [facility] Oncology and Hematology [place] [address] [place] [address] Candelario Saha MD [address] [facility] [address] [place] [address] Health Maintenance Due Date Last Done Comments DTAP/TDAP/TD VACCINES (1 - Tdap) 1977 BREAST CANCER SCREENING 1998 FIT-DNA Q 3 years 2003 FIT/FOBT Q 1 year 2003 Flex Sig/CT Colonography Q 5 years 2003 ZOSTER VACCINE (1 of 2) 2008 OSTEOPOROSIS SCREENING 2023 PNEUMOCOCCAL VACCINE 65+ YEARS (1 of 1 - PCV) 09/05/19 INFLUENZA VACCINE (#1) 2024 COLORECTAL SCREENING 10/21/2026 10/21/2016 Colorectal Cancer Screening 10/21/2026 RSV VACCINE (60+ or ) (1 - 1-dose 75+ series) 2033 Procedures Procedure Name Priority Date/Time Associated Diagnosis Comments COMPREHENSIVE METABOLIC PANEL Routine 04/05/2024 3:20 PM CDT FLOW CYTOMETRY REPORT Routine 04/05/2024 1:08 PM CDT from Last 3 Months Results * COMPREHENSIVE METABOLIC PANEL (04/05/2024 3:20 PM CDT) Blood Candelario Saha MD CHEMISTRY ORDERABLES * FLOW CYTOMETRY REPORT (04/05/2024 1:08 PM CDT) Candelario Saha MD PATHOLOGY/CYTOLOGY O RDERABLES from Last 3 Months Care Teams Sheet Metal Worker Relationship Specialty Start Date End Date Riki Lou MD [address] [place] [id number] PCP - General Family Practice 04/03/24
--- OUTSIDE RECORDS SUMMARY | 2024-07-02 04:43 | XMS_ITS | Encounter Summary ---
Author Organization [facility] Address [address] [place] [address] Care Team Providers Care Vp Treasurer Name Role Phone Riki Lou MD Primary Care Provider [phone] Encounter Details Date Type Department Care Team (Late st Contact Info) Description 04/05/2024 Orders Only [facility] Oncology and Hematology [facility] [address] [place] [address] Candelario Saha MD [address] [place], [place] [address] [facility] [address] [place] [address] Social History Tobacco Use Types Packs/Day [...] Description 10/24/2024 11:45 AM CDT Office Visit [facility] Oncology and Hematology [place] [address] [place] [address] Candelario Saha MD [address] [place] [address] documented as of this encounter Procedures Procedure Name Priority Date/Time Associated Diagnosis Comments COMPREHENSIVE METABOLIC PANEL Routine 04/05/2024 3:20 PM CDT documented in this encounter Results * COMPREHENSIVE METABOLIC PANEL (04/05/2024 3:20 PM CDT) Blood Candelario Saha MD CHEMISTRY ORDERABLES documented in this encounter Visit Diagnoses Not on filedocumented in this encounter Care Teams Vp Treasurer Relationship Specialty Start Date End Date Riki Lou MD [address] [place] [address] PCP - General Family Practice 04/03/24 documented as of this encounter
== END 2024-06-25 09:22 | disposition home or self-care (01) ==
PROVIDERS: PCP Family Medicine; Visit Provider Nurse Practitioner Family
DX: J43.9 Emphysema, unspecified (principal); E78.5 Hyperlipidemia, unspecified; F17.200 Nicotine dependence, unspecified, uncomplicated; Z79.899 Other long term (current) drug therapy
CPT/HCPCS: 36415; 80053; 80061

== ENCOUNTER 2024-10-24 11:09 | Outpatient (CLI) | payer MEDICARE, SELFPAY ==
[2024-10-24 11:30] LABS: Basophils Absolute Auto 0.1 K/mm3 (0.0-0.1); Basophils Percent Auto 0.8 % (0.2-1.2); Eosinophils Absolute Auto 0.3 K/mm3 (0-0.3); Eosinophils Percent Auto 2.4 % (0-4.4); Hematocrit 39.2 % (37.0-47.0); Hemoglobin 13.1 g/dL (12.0-15.0); Immature Granulocyte Absolute 0.05 K/mm3 (0.00-0.031); Immature Granulocyte Percent A 0.4 % (0-0.5); Lymphocytes Absolute Auto 3.28 K/mm3 (0.9-3.2); Lymphocytes Percent Auto 27.7 % (18.3-44.2); Mean Corpuscular HGB Conc 33.4 g/dl (32-36); Mean Corpuscular Hemoglobin 31.6 pg (26-34); Mean Corpuscular Volume 94.7 fl (80-100); Mean Platelet Volume 9.2 fl (7.4-10.4); Monocytes Absolute Auto 1.9 K/mm3 (0.1-0.6); Monocytes Percent Auto 16.3 % (2.6-8.5); Neutrophils Absolute Auto 6.2 K/mm3 (1.3-6.7); Neutrophils Percent Auto 52.4 % (45.5-73.1); Platelet Count Result 307 k/mm3 (150-375); Red Blood Count 4.14 M/mm3 (4.2-5.4); Red Cell Distribution Width 12.6 % (11.5-14.5); White Blood Count 11.9 K/mm3 (4.5-10.0)
--- OUTSIDE RECORDS SUMMARY | 2024-10-24 12:33 | XMS_ITS | Clinical Summary ---
Author Organization [facility] Address [address] [facility] [place] [address] Care Team Providers Care Tractor Operator Laser Leveling Name Role Phone Suman Hess Primary Care Provider [phone] Source Comments [facility],non-owned Affiliates and Associated Physician Practices is amultiple site organization consisting of ambulatory clinics and hospital sitesin [place], [place], [place] and [place]. This disclosure is being madepursuant to the Care Everywhere program and may not contain all information available regarding this patient. Last updated 18.[facility] [employer] Social History Tobacco Use Types Packs/Day Years Used Date Smoking Tobacco: Never Assessed Comments Unknown Sex and Gender Information Value Date Recorded Sex Assigned at Not on file Legal Sex Female 5:20 PM ORTHOPAEDIC TECHNOLOGIST Gender Identity Not on file Sexual Orientation [...] SCREENING 1958 LIPID TESTING 1958 MAMMOGRAM 1958 HEPATITIS C SCREENING 08/31/1976 DTAP/TDAP/TD VACCINES (1 - Tdap) 1977 PNEUMOCOCCAL VACCINE 50+ (1 of 1 - PCV) 2008 ZOSTER VACCINE (1 of 2) 2008 COVID-19 VACCINE (2023-2 5 season) 2024 DEPRESSION SCREENING 07/11/2024 INFLUENZA VACCINE (Season Ended) 2025 Respiratory Syncytial Virus (RSV) Vaccine Pt: or [...] patient's age to complete this topic MENINGOCOCCAL (Group B) VACC INE SHARED DECISION-MAKING Aged Out No longer eligibl e based on patient's age to complete this topic MENINGOCOCCAL GROUPS A/C/Y/W VACCINE Aged Out No longer eligible b ased on patient's age to complete this topic Insurance * Guarantor: TRANG NICKERSON Account Type Relation to Patient Date of Phone Billing Address Personal/Family [address] [place] [address] [employer] MEDICARE MANAGED CARE MEDICARE ADV [place]ID [place] * Guarantor: NICKERSON,TRANG Account Type Relation to Patient Date of Phone Billing Address Personal/Family [address] [place] [address] * Guarantor: TRANG NICKERSON Account Type Relation to Patient Date of Phone Billing Address Personal/Family [address] [place] [address] Care Teams Tractor Operator Laser Leveling Relationship Specialty Start Date End Date Suman Hess DO [address] [place], [place] [id number] PCP - General 10/15/21
--- OUTSIDE RECORDS SUMMARY | 2024-10-24 12:33 | XMS_ITS | Clinical Summary ---
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 Gender Identity Not on file Sexual Orientation Not on file Plan of Treatment Health Maintenance Due Date Last Done Comments DEXA Bone Density 1958 Hepatitis C Virus (HCV) Screening 1958 TdaP Immunization 1958 Pap Smear 1979 Cervical Cancer Screening (CCS) 1988 HPV/Cotest 1988 Cologuard 2008 Immunochemical Fecal Occult Blood 2008 Mammogram 2008 Pneumococcal Immunization (5 0+ years) (1 of 1 - PCV) 2008 Zoster Immunization (1 of 2) 2008 Colonoscopy 10/21/2017 10/21/2016 Colorectal Cancer Screening 10/21/2017 Influenza Immunization (#1) 2024 SARS-COV-2 Immunization ( - season) 2024 Respiratory Syncytial Virus (RSV) Immunization (Adult) (1 - 1-dose 75+ series) 2033 10/21/2016 Hepatitis B Immunization Aged Out No [...] to Health Maintenance [place] [address] Care Teams Historian Dramatic Arts Relationship Specialty Start Date End Date Camron Flowers MD [address] [place] [id number] PCP - General Internal Medicine 07/19/16
--- OUTSIDE RECORDS SUMMARY | 2024-10-24 12:33 | XMS_ITS | Clinical Summary ---
Author Organization [facility] Address [facility] [place] [address] Care Team Providers Care Track Car Operator Name Role Phone Unavailable Primary Care Provider [...] 2008 Dexa Scan (General) 2023 Pneumococcal Vaccine: 50+ Ye ars (1 of 1 - PCV) 2023 COVID-19 Vaccine ( - 2023-2 5 season) 2024 RSV Immunization or 60+ Years (1 - 1-dose 75+ series) 2033 Meningococcal B Vaccine Aged Out No l onger eligible based on patient's age to complete this topic Meningococcal Vaccine Aged Out No rehana evette eligible based on patient's age to complete this topic RSV Immunizations Under 20 Months Aged Out No longer eligible based on patient's age to complete this topic
--- OUTSIDE RECORDS SUMMARY | 2024-10-24 12:33 | XMS_ITS | Encounter Summary ---
Author Organization [facility] Address [address] [place] [address] Care Team Providers Care Automatic Pattern Edger Name Role Phone Riki Lou MD Primary Care Provider [phone] Encounter Details Date Type Department Care Team (Late st Contact Info) Description 10/24/2024 11:45 AM CDT Office Visit [facility] Oncology and Hematology - [place] [address] [facility] [address] [place] [address] Candelario Saha MD [address] [facility] [address] [place] [address] Leukocytosis, unspecified type (Primary Dx) Social History Tobacco Use Types Packs/Day Years Used Date Smoking Tobacco: Former Cigarettes 0.5 45 0 03/03/1979 - 03/03/2024 Smokeless Tobacco: Never Tobacco Cessation:Counseling Given: Not Answered Alcohol Use Standard Drinks/Week Comments Not Currently 0 (1 standard drink = 0.6 oz pur e alcohol) stopped drinking 40 yrs ago Comments Unknown Sex and Gender Information Value Date Recorded Sex Assigned at Not on file Legal Sex Female 8:34 AM CDT Gender Identity Not on file Sexual Orientation Not on file documented as of this encounter Last Filed Vital Signs Vital Sign Reading Time Taken Comments Blood Pressure 137/80 10/24/2024 11:33 AM CDT Pulse 80 10/24/2024 11:33 AM CDT Temperature 36.4 C (97.5 F) 10/24/2024 11:33 AM CDT Respiratory Rate 16 10/24/2024 11:33 AM CDT Oxygen Saturation 97% 10/24/2024 11:33 AM CDT Inhaled Oxygen Concentration - - Weight 57.3 kg (126 lb 6.4 oz) 10/24/2024 11:33 AM CDT Height - - Body Mass Index 23.88 04/03/2024 10:28 AM CDT documented in this encounter Plan of Treatment Upcoming Encounters Date Type Department Care Team (Late st Contact Info) Description 07/29/2025 11:30 AM CAREER DEVELOPMENT COUNSELOR Office Visit [facility] Oncology and Hematology - [place] [address] [facility] [address] [place] [address] Candelario Saha MD [address] [facility] [address] [place] [address] Scheduled Orders Name Type Priority Associated Diagnoses Orde r Schedule CBC WITH DIFFERENTIAL Lab Stat Leukocytosis, unspecified type Expected: 07/26/2025, Expires: 10/24/2025 COMPREHENSIVE METABOLIC PANEL Lab Stat Leukocytosis, unspecified type Expected: 07/26/2025, Expires: 10/24/2025 documented as of this encounter Visit Diagnoses Diagnosis Leukocytosis, unspecified type- Primary documented in this encounter Care Teams Automatic Pattern Edger Relationship Specialty Start Date End Date Riki Lou MD [address] [place] [address] PCP - General Family Practice 04/03/24 documented as of this encounter
--- OUTSIDE RECORDS SUMMARY | 2024-10-24 12:33 | XMS_ITS | Data Portability ---
Author Organization [facility], Main Office Address [address] [place] [address] Assessment Encounter Date Assessment Date Assessment LastModified by Organization Details LastModified Time 03/22/2023 03/22/2023 This note is dictated and transcribed by [employer]. Manager Ccu variances may occur. Despite proofreading, typographical errors may occur. [email or web address] Not available 03/22/2023 10:44:34 Plan of Treatment Reminders Order Date Submit Date Provider Last Modified By Organization Details Last Modified Time Details Appointments None record ed. Lab None record ed. Referral None record ed. Procedures None record ed. Surgeries None record ed. Imaging XR, foot, 3 or more view 023 03/22/[address] ([employer]), [address] [place], [address], 3 08:32:16 Medication Orders None record ed. Patient TargetsNo targets recorded. Patient InstructionsNo instructions recorded. Reason for Referral None Reported. Problems Name Problem SNOMED Code Status Onset Date Resolution Date Notes Provider Name and Address Organization Details Recorded Time Depressive disorder 49437837 Active 2022 Irma israel [facility] 3 10:06:24 Osteoporos is 86894200 Active 2022 Irma israel [facility] 3 10:06:34 Neuralgia 08011575 Active 2022 Raymond De Paz DPM [address] [facility], [facility] [address], [place], [address] , [facility] 3 10:43:35 Pain in right foot 2932740662904 07 Active 2022 Raymond De Paz DPM [address] [facility], [address], [place], [address] , [facility] 3 10:45:00 Notes:BACK/NECK PROBLEMS Problem Notes None recorded. Procedures Surgical History Date Name Laterality Status Provider Name and Address Organization Details Recorded Time 3 Neuroma Injection 6217 completed Raymond De Paz DPM [address], [address], [place], [address], [facility] 03/22/2023 10:43:28 Imaging Results None recorded. Procedure [...] Updated DateTime 03/22/2023 167.64 cm 19.4 kg/m2 32158.08 g Irma Celestin [facility] [employer] 03/22/2023 10:05:49 Date Recorded Body height Body mass index (BMI) Body weight Heart rate Respiratory rate Oxygen saturation Oxygen saturation in Arterial blood by Pulse oximetry Systolic blood pressure Diastolic blood pressure Provider Name and Address Organization Details Last Updated DateTime 3 167.64 cm 19.4 kg/m2 65863.5 5 g 97 /min 14 /min 99 % 99 % 138 mm[Hg] 84 mm[Hg] Mariia Copeland [facility] 15:38:44 Social History Question Answer Notes LastModified by Organizat ion Details LastModified Time Tobacco Smoking Status Former Smoker Irma israel [facility] 03/22/2023 10:07:04 What Is Your Level Of Alcohol Consumption? None [email or web address] Information not available 03/22/2023 Sex: Unknown Functional Status None recorded. Mental Status None recorded. Family History Nothing Reported. Medical History Condition Response BACK / NECK PROBLEMS Y DEPRESSION (INCLUDING POST ) Y OSTEOPOROSIS Y Gynecological HistoryNo gynecological history recorded. Obstetrics History GPAL:G 0 P 0 0 0 0 Past Encounters Encounter ID Performer Location Encounter Start Date Encounter Closed Date Diagnosis/Indication Diagnosis SNOMED-CT Code Diagnosis ICD10 Code Diagnosis Note [id number] Raymond De Paz DPM [facility] [address], [address] [address] 03/22/2023 10:00:03 03/22/2023 13:29:09 Neuralgia 25528465 M79.2 right 4th interspace recommend [employer] met orthoticsr ecommend supportive shoe gear- does not currently use supportive shoesrecom mend no barefoot walkingmon itor for signs of infection post injection, neuroma injection 4th interspace 03/22/2023 right footfollow -up in 1 month Pain in right foot 76290 70636 84993 M79.671 as above [id number] Raymond De Paz DPM [facility] [address], [address] [address] 04/19/2023 15:32:28 04/19/2023 16:08:19 Neuralgia 89213565 M79.2 right 4th interspace - Resolvedre commend [employer] met orthoticsr ecommend supportive shoe gear- does not currently use supportive shoesrecom mend no barefoot walkingfol low-up as needed Health Concerns Section Related Observation LastModified by Organization Detai ls LastModified Time None Recorded Concern Status LastModified by Organization Details LastModified Time None Recorded Advance Directives Directive None Recorded Payers Encounter Date Sequence Insurance Name Policy Number Policy Sorensen Covered Member ID Sorensen Member ID Guarantor Name 03/22/2023 1 [facility] (MEDICARE REPLACEMENT HMO) Janeen Ferro [id number] Janeen Ferro 03/22/2023 2 [place] [facility]PARTMENT OF PUBLIC AID Janeen Ferro [id number] Janeen Ferro 04/19/2023 1 [facility] (MEDICARE REPLACEMENT HMO) Janeen Ferro [id number] Janeen Ferro 04/19/2023 2 [place] [facility] OF PUBLIC AID Janeen Ferro [id number] Janeen Ferro Notes Date Note Type Note [...] complaints. Raymond De Paz DPM [address], [employer], [place], [address], [facility] 03/22/2023 14:44:52 04/19/2023 text/html . Patient is a 62-year-old female who returns the office for follow-up on right foot pain. Patient at last visit underwent a injection which completely resolved her discomfort. Patient states she is no longer having any pain. Patient denies any other complaints or signs of infection. Raymond De Paz DPM [address], [address] [employer], [place], [address], [place] 04/19/2023 16:04:23 OBGyn Episode No OBEpisode recorded.
--- OUTSIDE RECORDS SUMMARY | 2024-10-24 12:33 | XMS_ITS | Clinical Summary ---
Author Organization [facility] Juanjessa adrianna Palacios Address [address] [place] [address] Care Team Providers Care Leak Inspector Name Role Phone Riki Lou MD Primary Care Provider [phone] Allergies No known active allergies Medications ezetimibe (ZETIA) 10 mg tablet Take 1 Tablet by mouth daily. 02/07/2024 Active omeprazole (PriLOSEC) 40 mg Capsule, Delayed Release(E.C.) Take 40 mg by mouth daily. Active rosuvastatin (CRESTOR) 40 mg tablet Take 40 mg by mouth daily at bedtime. 02/07/2024 Active Active Problems No known active problems Encounters Date Type Department Care Team Description 10/24/2024 11:45 AM CDT Office Visit [facility] Oncology and Hematology - [place] [address] [facility] [address] [address] Candelario Saha MD Leukocytosis, unspecified type (Primary Dx) 09/26/2024 External Device Data STL ABSTRACTION Provider, Abstract 09/15/2024 External Device Data STL ABSTRACTION Provider, Abstract 09/14/2024 External Device Data STL ABSTRACTION Provider, Abstract 09/11/2024 External Device Data STL ABSTRACTION Provider, Abstract 08/29/2024 External Device Data STL ABSTRACTION Provider, Abstract 08/28/2024 External Device Data STL ABSTRACTION Provider, Abstract 08/01/2024 External Device Data STL ABSTRACTION Provider, Abstract 07/31/2024 External Device Data STL ABSTRACTION Provider, Abstract from Last 3 Months Family History Medical [...] 6.4 oz) 10/24/2024 11:33 AM CDT Height 154.9 cm (5' 1 ) 04/03/2024 10:28 AM CDT Body Mass Index 23.88 04/03/2024 10:28 AM CDT Plan of Treatment Upcoming Encounters Date Type Department Care Team (Late st Contact Info) Description 07/29/2025 11:30 AM GENERAL OPERATOR Office Visit [facility] Oncology and Hematology [facility] [address] [place] [address] [facility] [address] [place] [address] Candelario Saha MD [address] [facility] [address] [place] [address] Health Maintenance Due Date Last Done Comments DTAP/TDAP/TD VACCINES (1 - Tdap) 1977 BREAST CANCER SCREENING 1998 FIT-DNA Q 3 years 2003 FIT/FOBT Q 1 year 2003 Flex Sig/CT Colonography Q 5 years 2003 Lung Cancer Screening 2008 PNEUMOCOCCAL VACCINE 50+ YEARS (1 of 1 - PCV) 09/05/19 09 ZOSTER VACCINE (1 of 2) 2008 OSTEOPOROSIS SCREENING 2023 INFLUENZA VACCINE (#1) 2024 Medicare Advantage ([place]) Prev entative Visit/Annual Wellness Visit 07/11/2024 COLORECTAL SCREENING 10/21/2026 10/21/2016 Colorectal Cancer Screening 10/21/2026 RSV VACCINE (60+ or ) (1 - 1-dose 75+ series) 2033 Insurance [facility] [place]ICAID [place] Care Teams Leak Inspector Relationship Specialty Start Date End Date Riki Lou MD [address] [place] [address] PCP - General Family Practice 04/03/24
== END 2024-10-24 11:10 | disposition home or self-care (01) ==
LOC: ANHLAB 11:11
PROVIDERS: PCP Family Medicine; Visit Provider Internal Medicine Hematology & Oncology
DX: D72.829 Elevated white blood cell count, unspecified (principal)
CPT/HCPCS: 36415; 85025

== ENCOUNTER 2025-01-17 08:43 | Outpatient (CLI) | payer MEDICARE, SELFPAY ==
--- NOTE | ~2025-01-17 | MM_ITS ---
EXAMINATION: MM screening gasper BI w aretha HISTORY: Screening mammogram TECHNIQUE: Craniocaudal and mediolateral oblique 3-D tomosynthesis images were obtained and synthetic 2-D images were generated. CAD analysis was submitted and interpreted. COMPARISON: 01/17/2024, 11/25/2022, 09/25/2021 BREAST PARENCHYMAL COMPOSITION:Not Dense. There are scattered areas of fibroglandular density. FINDINGS: No suspicious mass, calcification, or architectural distortion are identified in either kae ast to suggest malignancy. There has been no suspicious interval change. IMPRESSION: No mammographic evidence of malignancy. Recommend routine screening mammography in one year. BI-RADS Category 1: Negative Reviewed, dictated and finalized at location .
--- OUTSIDE RECORDS SUMMARY | 2025-01-17 08:46 | XMS_ITS | Clinical Summary ---
Author Organization [facility] Address [facility] [place] [address] Care Team Providers Care Boat Garnisher Name Role Phone Unavailable Primary Care Provider [...] 1 - Tdap) 1977 Mammogram Screening 1998 Pneumococcal Vaccine: 50+ Ye ars (1 of 1 - PCV) 2008 Zoster Vaccines (1 of 2) 2008 Dexa Scan (General) 2023 COVID-19 Vaccine ( - 2023-2 5 [...]
--- OUTSIDE RECORDS SUMMARY | 2025-01-17 08:47 | XMS_ITS | Clinical Summary ---
Author Organization [facility] Address [address] [address] Phone Care Team Providers Care Intermission Coordinator Name Role Phone Camron Flowers MD Primary Care Provider [phone] Allergies No known active allergies Medications polyethylene [...] on file Legal Sex Female 12:55 PM CLINICAL TRIAL DATA MANAGER Gender Identity Not on file Sexual Orientation [...] (Adult) (1 - 1-dose 75+ series) 2033 Hepatitis B Immunization Aged Out No longer [...] Maintenance Insurance MEDICARE C [employer] Care Teams Intermission Coordinator Relationship Specialty Start Date End Date Camron Flowers MD [address] [place] [address] PCP - General Internal Medicine 07/19/16
--- OUTSIDE RECORDS SUMMARY | 2025-01-17 08:47 | XMS_ITS | Clinical Summary ---
Author Organization [facility] Mechelle adrianna Palacios Address [address] [place] [address] Care Team Providers Care Slicing Machine Operator/Tender Name Role Phone Riki Lou MD Primary Care Provider [phone] Allergies No known active allergies Medications ezetimibe (ZETIA) 10 mg tablet Take 1 Tablet by mouth daily. 02/07/2024 Active omeprazole (PriLOSEC) 40 mg Capsule, Delayed Release(E.C.) Take 40 mg by mouth daily. Active rosuvastatin (CRESTOR) 40 mg tablet Take 40 mg by mouth daily at bedtime. 02/07/2024 Active Active Problems No known active problems Encounters Date Type Department Care Team Description 01/01/2025 External Device Data STL ABSTRACTION Provider, Abstract 12/04/2024 External Device Data STL ABSTRACTION Provider, Abstract 11/27/2024 External Device Data STL ABSTRACTION Provider, Abstract 10/24/2024 11:45 AM CDT Office Visit [facility] Oncology and Hematology - José Miguel [address] [place] [address] Candelario Saha MD Leukocytosis, unspecified type (Primary Dx) 10/24/2024 Orders Only [facility] Oncology and Hematology José Miguel [address] [place] [address] Candelario Saha MD from Last 3 Months Family History Medical [...] 11:33 AM CDT Height 154.9 cm (5' 1) 04/03/2024 10:28 AM CDT Body Mass Index 23.88 04/03/2024 10:28 AM CDT Plan of Treatment Upcoming Encounters Date Type Department Care Team (Late st Contact Info) Description 07/29/2025 11:30 AM CUSTOMER CARE PROFESSIONAL Office Visit [facility] Oncology and Hematology [facility] [address] [facility] [address] [place] [address] Candelario Saha MD [address] [facility] [address] [place] [address] Health Maintenance Due Date Last Done Comments DTAP/TDAP/TD VACCINES (1 - Tdap) 1977 BREAST CANCER SCREENING 1998 FIT-DNA Q 3 years 2003 FIT/FOBT Q 1 year 2003 Flex Sig/CT Colonography Q 5 years 2003 Lung Cancer Screening 2008 PNEUMOCOCCAL VACCINE 50+ YEARS (1 of 1 - PCV) 09/05/19 09 ZOSTER VACCINE (1 of 2) 2008 OSTEOPOROSIS SCREENING 2023 INFLUENZA VACCINE (#1) 2025 COLORECTAL SCREENING 10/21/2026 10/21/2016 Colorectal Cancer Screening 10/21/2026 RSV VACCINE (60+ or ) (1 - 1-dose 75+ series) 2033 Procedures Procedure Name Priority Date/Time Associated Diagnosis Comments CBC WITH AUTODIFFERENTIAL Routine 2024 3:32 PM CDT from Last 3 Months Results * CBC WITH AUTODIFFERENTIAL (10/24/2024 3:32 PM CDT) Blood us Candelario Saha MD HEMATOLOGY ORDERABLES Final Res ult from Last 3 Months Insurance [facility] Address: [address] [address] [place] [address] [place]ID [place] Care Teams Slicing Machine Operator/Tender Relationship Specialty Start Date End Date Riki Lou MD [address] [place] [address] PCP - General Family Practice 04/03/24
--- OUTSIDE RECORDS SUMMARY | 2025-01-17 08:47 | XMS_ITS | Clinical Summary ---
Author Organization [facility] Address [address] [facility] [place] [address] Care Team Providers Care Singer Songwriter Name Role Phone Suman Hess Primary Care Provider [phone] Source Comments [facility],non-owned Affiliates and Associated Physician Practices is amultiple site organization consisting of ambulatory clinics and hospital sitesin [place], [place], [place] and [place]. This disclosure is being madepursuant to the Care Everywhere program and may not contain all information available regarding this patient. Last updated 18.[facility] [employer] Social History Tobacco Use Types Packs/Day Years Used Date Smoking Tobacco: Never Assessed Comments Unknown Sex and Gender Information Value Date Recorded Sex Assigned at Not on file Legal Sex Female 5:20 PM DUMPER [employer]ING [employer] Gender Identity Not on file Sexual Orientation [...] Patient Date of Phone Billing Address Personal/Family [address] [place] [address] [employer] MEDICARE MANAGED CARE MEDICARE ADV [place]ID [place] * Guarantor: NICKERSON,TRANG Account Type Relation to Patient Date of Phone Billing Address Personal/Family [address] [place] [address] * Guarantor: TRANG NICKERSON Account Type Relation to Patient Date of Phone Billing Address Personal/Family [address] [place] [address] Care Teams Singer Songwriter Relationship Specialty Start Date End Date Suman Hess DO [address] [place], [place] [id number] PCP - General 10/15/21
--- OUTSIDE RECORDS SUMMARY | 2025-01-17 08:47 | XMS_ITS | Data Portability ---
Author Organization [facility], Main Office Address [address] [place] [address] Assessment Encounter Date Assessment Date Assessment LastModified by Organization Details LastModified Time 03/22/2023 03/22/2023 This note is dictated and transcribed by [employer]. [employer]iler [employer] Gre[employer] variances may occur. Despite proofreading, typographical errors may occur. [email or web address] Not available 03/22/2023 10:44:34 Plan of Treatment Reminders Order Date Submit Date Provider Last Modified By Organization Details Last Modified Time Details Appointments None record ed. Lab None record ed. Referral None record ed. Procedures None record ed. Surgeries None record ed. Imaging XR, foot, 3 or more view 023 03/22/[address] ([employer]), [address] [place], [address], 3 08:32:16 Medication Orders None record ed. Patient TargetsNo targets recorded. Patient InstructionsNo instructions recorded. Reason for Referral None Reported. Problems Name Problem SNOMED Code Status Onset Date Resolution Date Notes Provider Name and Address Organization Details Recorded Time Depressive disorder 57392307 Active 2022 Irma israel [facility] 3 10:06:24 Osteoporos is 70377589 Active 2022 Irma israel [facility] 3 10:06:34 Neuralgia 12167273 Active 2022 Raymond De Paz DPM [address] [facility] [address], [place], [address] , [facility] 3 10:43:35 Pain in right foot 1050723401053 07 Active 2022 Raymond De Paz DPM [address] [facility], [place], [address] , [facility] Hailo [facility] 3 10:45:00 Notes:BACK/NECK PROBLEMS Problem Notes None recorded. Procedures Surgical History Date Name Laterality Status Provider Name and Address Organization Details Recorded Time 3 Neuroma Injection 6217 completed Raymond De Paz DPM [address] [facility], [address], [place], [address], [facility] Hail[facility] 03/22/2023 10:43:28 Imaging Results None recorded. Procedure [...] Updated DateTime 03/22/2023 167.64 cm 19.4 kg/m2 29399.08 g Irma Celestin [facility] Hailo [facility] [employer] 03/22/2023 10:05:49 Date Recorded Body height Body mass index (BMI) Body weight Heart rate Respiratory rate Oxygen saturation Oxygen saturation in Arterial blood by Pulse oximetry Systolic And Diastolic Provider Name and Address Organization Details Last Updated DateTime 3 167.64 cm 19.4 kg/m2 00499.5 5 g 97 /min 14 /min 99 % 99 % 138/84 mm[Hg] Mariia Copeland [facility] Hailo [facility] 15:38:44 Social History None recorded. Functional Status Question Answer Note LastModified by Organization D etails LastModified Time What is your level of alcohol consumption? None [email or web address] Information not available 03/22/2023 Mental Status None recorded. Family History Nothing Reported. Medical History Condition Response OSTEOPOROSIS Y DEPRESSION (INCLUDING POST ) Y BACK / NECK PROBLEMS Y Gynecological HistoryNo gynecological history recorded. Obstetrics History GPAL:G 0 P 0 0 0 0 Past Encounters Encounter ID Performer Location Encounter Start Date Encounter Closed Date Diagnosis/Indication Diagnosis SNOMED-CT Code Diagnosis ICD10 Code Diagnosis Note [id number] Raymond De Paz DPM [facility] [place] [address] [place] [id number] 03/22/2023 10:00:03 03/22/2023 13:29:09 Neuralgia 15338659 M79.2 right 4th interspace recommend [employer] [facility] orthoticsr ecommend supportive shoe gear- does not currently use supportive shoesrecom mend no barefoot walkingmon itor for signs of infection post injection, neuroma injection 4th interspace 03/22/2023 right footfollow -up in 1 month Pain in right foot [address]84[address]163 80334 M79.671 as above [id number] Raymond De Paz DPM [facility] [place] [address] [id number] 04/19/2023 15:32:28 04/19/2023 16:08:19 Neuralgia 90768040 M79.2 right 4th interspace - Resolvedre commend [employer] [facility] orthoticsr ecommend supportive shoe gear- does not currently use supportive shoesrecom mend no barefoot walkingfol low-up as needed Health Concerns Section Related Observation LastModified by Organization Detai ls LastModified Time None Recorded Concern Status LastModified by Organization Details LastModified Time None Recorded Advance Directives Directive None Recorded Payers Insurance Date Sequence Insurance Name Policy Number Policy Sorensen Covered Member ID Sorensen Member ID Guarantor Name 04/16/2023 2 [place] [employer] [place] [employer] Janeen Ferro [id number] Janeen Ferro 04/16/2023 1 [facility] (MEDICARE REPLACEMENT HMO) Janeen Ferro [id number] Janeen Ferro Notes Date Note Type Note [...] complaints. Raymond De Paz DPM [address] [place] [address], [place], [address], [employer] [facility] [employer] [facility] 03/22/2023 14:44:52 04/19/2023 text/html . Patient is a 62-year-old female who returns the office for follow-up on right foot pain. Patient at last visit underwent a injection which completely resolved her discomfort. Patient states she is no longer having any pain. Patient denies any other complaints or signs of infection. Raymond De Paz DPM [address], [address], [place], [address], [employer] [facility] [employer] [facility] 04/19/2023 16:04:23 OBGyn Episode No OBEpisode recorded.
== END 2025-01-17 08:44 | disposition home or self-care (01) ==
LOC: ANHIMG 08:44
PROVIDERS: PCP Family Medicine; Visit Provider Nurse Practitioner Family
DX: Z12.31 Encounter for screening mammogram for malignant neoplasm of breast (principal)
CPT/HCPCS: 77063; 77067